=== PATIENT | female | born 1980 | race Caucasian/White ===

== ENCOUNTER → 2021-04-27 | Outpatient (CLI) | payer BC ==
[2021-04-27 12:34] LABS: BASO # 0.1 10^3/uL (0.0-0.2); EOS # 0.2 10^3/uL (0.0-0.5); HEMATOCRIT 43.6 % (36.0-47.0); HEMOGLOBIN 14.1 g/dl (12.0-15.5); LYMPH % 27.6 % (24.0-44.0); MEAN CORPUSCULAR HEMOGLOBIN 33.3 pg (27.0-33.0); MEAN CORPUSCULAR HGB CONC 32.3 g/dl (32.0-36.5); MEAN CORPUSCULAR VOLUME 102.8 fl (80.0-96.0); MONO % 9.5 % (2.0-8.0); NEUTROPHILS # 6.4 10^3/uL (1.5-8.5); NEUTROPHILS % 59.2 % (36.0-66.0); PLATELET COUNT, AUTOMATED 251 10^3/uL (150-450); RED BLOOD COUNT 4.24 10^6/uL (4.00-5.40); WHITE BLOOD COUNT 10.7 10^3/uL (4.0-10.0)
[2021-04-27 12:58] LABS: ALBUMIN 4.2 GM/DL (3.2-5.2); BILIRUBIN,DIRECT 0.2 MG/DL (0.0-0.2); BILIRUBIN,TOTAL 0.5 MG/DL (0.2-1.0); TOTAL PROTEIN 7.6 GM/DL (6.4-8.2)
== END ==
LOC: M LAB 10:59
PROVIDERS: ATTEND Internal Medicine Gastroenterology
DX: R19.7 Diarrhea, unspecified (principal)

== ENCOUNTER → 2021-05-03 | Outpatient (CLI) | payer BC ==
[2021-05-03 13:17] LABS: ALBUMIN 3.5 GM/DL (3.2-5.2); BILIRUBIN,DIRECT 0.2 MG/DL (0.0-0.2); BILIRUBIN,TOTAL 0.5 MG/DL (0.2-1.0); TOTAL PROTEIN 6.6 GM/DL (6.4-8.2)
== END ==
LOC: M LAB 07:06
PROVIDERS: ATTEND Internal Medicine Gastroenterology
DX: R19.7 Diarrhea, unspecified (principal)

== ENCOUNTER → 2021-07-02 | Outpatient (CLI) | payer BC ==
[~2021-07-02] MED LIST: LEVO150C PO; LISI20TA33 PO
== END ==
LOC: M LABSMTC 10:45
PROVIDERS: ATTEND Anesthesiology
DX: Z01.812 Encounter for preprocedural laboratory examination (principal); Z20.822 Contact with and (suspected) exposure to COVID-19

== ENCOUNTER 2021-07-06 11:22 | Day surgery (SDC) | payer BC ==
[~2021-07-06] VITALS: Ht 162.6 cm; Wt 68.0 kg
[~2021-07-06 11:22] MED LIST changes: +NS 1,000 ML IV ONE
[2021-07-06] MEDS ORDERED: propofoL 200 MG/20 ML VIAL As Ordered ONE ×2 (11:25→13:30)
[2021-07-06] MEDS ORDERED: LIDOCAINE 2% 100MG/5ML SDV (FOR ANES.) As Ordered ONE (11:25)
[2021-07-06] MEDS ORDERED: fentaNYL 100 MCG/2 ML INJECTION (J3010) As Ordered ONE (11:25)
--- OUTSIDE RECORDS SUMMARY | 2021-07-06 11:28 | CCD ---
Author Author [facility] Organization [facility] Address [address] [place] [address] Phone Care Team Providers Care Behavioral Modification Assistant Name Role Phone Laura PHIPPS, Vandana Davis Unavailable [phone] Reason for Referral No Reason for Referral Recorded Problems Includes: Active, inactive, and resolved Problems All Visits Onset Date - Time Resolved Date - Time Provider Co ndition Status Essential Hypertension Benign 11/21/2020 - 12:00AM Nikko Workman HALL MONITOR Active Note: Unchanged Substance Use Disorders 11/21/2020 - 12:00AM [facility] Workman HALL MONITOR Active Note: Unchanged Hypothyroidism Acquired 11/21/2020 - 12:00AM [facility] Workman HALL MONITOR Active Note: Unchanged Plan of Treatment Pending Tests Order Diagnosis Results Due Ordering Provi aryan *Labs (Manual) VIT D 25-OH Encounter for screening for nutr itional disorder 12/05/20 Cristiana Workman HALL MONITOR *Labs (Manual) TSH Hypothyroidism, unspecified 12/05/20 [facility] Workman HALL MONITOR *Labs (Manual) FREE T3 Hypothyroidism, unspecified 12/05/20 Cristiana Workman HALL MONITOR *Labs (Manual) FREE T4 Hypothyroidism, unspecified 12/05/20 Cristiana Workman HALL MONITOR *Labs (Manual) *FASTING Essential (primary) hypertension Cristiana Workman HALL MONITOR *Labs (Manual) LIPID Essential (primary) hypertension Cristiana Workman HALL MONITOR *Labs (Manual) URIC ACID Essential (primary) hypertension Cristiana Workman HALL MONITOR *Labs (Manual) CBC HCC-Alcohol use, unsp with unspe cified alcohol-induced disor 12/05/20 Cristiana Workman HALL MONITOR *Labs (Manual) CMP HCC-Alcohol use, unsp with unspe cified alcohol-induced disor 12/05/20 Cristiana Byrne Ji HALL MONITOR *Labs (Manual) FOLATE HCC-Alcohol use, uns p with unspecified alcohol-induced disor 12/05/20 Cristiana Byrne Ji HALL MONITOR *Labs (Manual) GGT HCC-Alcohol use, unsp with unspe cified alcohol-induced disor 12/05/20 Cristiana Byrne Ji HALL MONITOR *Labs (Manual) VIT B12 HCC-Alcohol use, uns p with unspecified alcohol-induced disor 12/05/20 Cristiana Byrne Ji HALL MONITOR *Labs (Manual) *RANDOM HCC-Alcohol use, uns p with unspecified alcohol-induced disor 12/05/20 Cristiana Byrne Ji HALL MONITOR *Labs (Manual) CBC Epigastric pain 02/26/21 [facility] poe Ji HALL MONITOR *Labs (Manual) CMP Epigastric pain 02/26/21 [facility] mckeonclementina Workman HALL MONITOR *Labs (Manual) AMYLASE Epigastric pain 02/26/21 [facility] poe Ji HALL MONITOR *Labs (Manual) LIPASE Epigastric pain 02/26/21 [facility] lindaclementina Ji HALL MONITOR Findings Encounter Date INCREASE LISINOPRIL TO 40MG PO QHS FFUP 4W BP CHK E XTENDED VISIT with Cristiana Workman NP 05/08/2021 DISCONTINUE LOSARTAN RESTART LISINOPR IL 20MG PO QHS CBC, CMP, AMYLASE, LIPASE REFERRAL TO DR. DOVER [facility] IN [place] FOR POSSIBLE EGD FOR POSSIBLE GASTRIC ULCERS. PT DRINKS 6PK 16oz BEERS/NIGHT, HAS CHRONIC STRESS FROM WORK FFUP 3M MED CHK STANDARD OV with Cristiana Chavez Workman NP 02/12/2021 DISCONTINUE LISINOPRIL START LOSARTAN 25MG PO QHS FFUP 2M MED CHK PE AND PAP with Cristiana Workman NP 12/19/2020 CBC, CMP, LIPID, VIT D, URIC ACID, GGT , FOLATE, B12, CDT (CARBOHYDRATE- DEFICIENT TRANSFERRIN), TSH, FREE T3 T4 FFUP 4W APE W PAP, LAB REVIEW NEW PATIENT EVALUATION with Cristiana Workman NP 11/21/2020 Assessments Includes: Assessments for all patient encounters Findings Encounter Date Benign essential hypertension EXTENDED VISIT with Cristiana Gutierrez lui Workman NP 05/08/2021 Hypothyroidism EXTENDED VISIT with Cristiana Cabaclementina parisi HALL MONITOR 05/08/2021 Abdominal pain--epigastric STANDARD OV with Cristiana Carrillo blanca HALL MONITOR 02/12/2021 Benign essential hypertension STANDARD OV with Cristiana mcrae Ji HALL MONITOR 02/12/2021 Alcohol use PE AND PAP with Cristiana Byrne [place] HALL MONITOR 12/19/2020 Benign essential hypertension PE AND PAP with Cristiana Workman HALL MONITOR 12/19/2020 Routine adult history and physical (18-64 yrs) without abnormal findings PE AND PAP with Cristiana Byrne Ji HALL MONITOR 12/19/2020 Routine history and physical PE AND PAP with Cristiana Byrne [place] HALL MONITOR 12/19/2020 Alcohol use NEW PATIENT EVALUATION with Cristiana Mccall nichole Workman HALL MONITOR 11/21/2020 Benign essential hypertension NEW PATIENT EVALUATION w ith Cristiana Byrne Ji HALL MONITOR 11/21/2020 Hypothyroidism NEW PATIENT EVALUATION with Cristiana Mccall ae Ji HALL MONITOR 11/21/2020 Instructions Instructions not supported for this document typeNo Instructions Recorded Medical Equipment - Implanted Devices Includes: Current and historical DevicesNo Medical Equipment Recorded Medications Includes: Current and historical Medications Current Medications (continue as prescribed) Levothyroxine Sodium 150 MCG Oral Capsule 05/08/2021 - 08/06 Provider: Cristiana Workman NP Diagnosis: Hypothyroidism, unsp ecified TAKE 1 TAB BY MOUTH ONCE DAILY Lisinopril 20 MG Oral Tablet 05/08/2021 - 08/06/2021 Provide r: Cristiana Workman NP Diagnosis: Essential (primary) hypertension TAKE 2 TABS (40MG) BY MOUTH AT BEDTIME Past Medications on file Levothyroxine Sodium 150 MCG Oral Capsule 02/12/2021 - 05/08 Provider: Cristiana Workman NP Diagnosis: Hypothyroidism, unsp ecified TAKE 1 TAB BY MOUTH ONCE DAILY Lisinopril 20 MG Oral Tablet 02/12/2021 - 05/08/2021 Provide r: Cristiana Workman NP Diagnosis: Essential (primary) hypertension TAKE 1 TAB BY MOUTH AT BEDTIME Losartan Potassium 50 MG Oral Tablet 01/30/2021 - 02/12/2021 Provider: Cristiana Workman NP Diagnosis: Essential (primary) hypertension 1 every day po Losartan Potassium 25 MG Oral Tablet 12/19/2020 - 01/30/2021 Provider: Cristiana Workman NP Diagnosis: Essential (primary) hypertension TAKE 1 TAB BY MOUTH AT BEDTIME Levothyroxine Sodium 150 MCG Oral Capsule 11/21/2020 - 11/21 Provider: Diagnosis: take one tab po qd Lisinopril 20 MG Oral Tablet 11/21/2020 - 11/21/2020 Provide r: Diagnosis: take one tab po qd Levothyroxine Sodium 150 MCG Oral Capsule 11/21/2020 - 02/12 Provider: Cristiana Workman NP Diagnosis: Hypothyroidism, unsp ecified TAKE 1 TAB BY MOUTH ONCE DAILY Lisinopril 20 MG Oral Tablet 11/21/2020 - 12/19/2020 Provide r: Cristiana Workman NP Diagnosis: Essential (primary) hypertension TAKE 1 TAB BY MOUTH ONCE DAILY Medications Administered Includes: Administered Medications in patient's chartNo Administered Medications Recorded Vital Signs Includes: Vital Signs from 05/08/2020 through 05/08/2021 Vital Name 05/08/2021 07:58A 02/12/2021 08:26A 12/19/2020 08:38A 11/21/2020 08:23A Blood Pressure Sitting R 114/86 BP Cuff Size Regular Regular Regular Regular Pulse Rate-Sitting (bpm) 78 64 68 72 Respiration Rate (breaths/min) 18 18 20 20 Temp-Tympanic (F) 95.6 96.8 98 97.8 Height (in) 63.25 63.25 63.25 63.25 Weight (lb) 153 156 154.5 160 Body Mass Index (kg/m2) 26.9 27.4 27.2 28.1 Body Surface Area (m2) 1.73 1.75 1.74 1.76 Oxygen Saturation (%) 98 97 98 97 Flow Rate (l/min) (None (Room Air)) FiO2 (%) 21 Blood Pressure Sitting L 158/96 132/80 126 /80 Results Includes: Results from 05/08/2020 through 05/08/2021 IGP,Aptima HPV,CtNg Age Gdln [facility] Ordered by Cristiana Workman NP on 12/19/2020 Collected: 12/19/2020 Reported: 12/22/2020 10:06 tel : Age Gdln ACOG Testing 30-65 None Reviewed by Cristiana Workman NP on 12/23/2020; All test results are final unless otherwise noted. IGP, Aptima HPV, rfx 16/18,45 [facility] Ordered by Cristiana Workman NP on 12/19/2020 Collected: 12/19/2020 Reported: 12/22/2020 10:06 tel : . . None Note: PAPSMR None Note: The Pap smear is a screening test designed to aid in the detection ofpremalignant and malignant conditions of the uterine cervix. It is not adiagnostic procedure and should not be used as the sole means of detectingcervical cancer. Both false-positive and false-negative reports do occur. DIAGNOSIS: See Note None Note: NEGATIVE FOR INTRAEPITHELIAL LESIO N OR MALIGNANCY.REACTIVE CELLULAR CHANGES AND/OR REPAIR ARE PRESENT.SHIFT IN LEONA SUGGESTIVE OF BACTERIAL VAGINOSIS.SPECIMEN REPROCESSED FOR INTERPRETATION USING GLACIAL ACETIC ACID(GAA). Specimen adequacy: See Note None Note: Satisfactory for evaluation. Endo cervical and/or squamous metaplasticcells (endocervical component) are present. Performed by: See Note None Note: Maite Severino, Cement Worker (A SCP) Electronically signed by: See Note None Note: Karthik Wolff MD, Patholog ist Clinician provided ICD10: See Note None Note: Z12.4 HPV Aptima Negative (Negative) None Note: This nucleic acid amplification te st detects fourteen high-riskHPV types (16,18,31,33,35,39,45,51,52,56,58,59,66,68) withoutdifferentiation. Test Methodology: TNP None Status: Cannot be done Note: The Thin Prep(R) Sales Record Clerk was unable to read this specimen. Thereforea manual review was performed. Reviewed by Cristiana Workman NP on 12/23/2020; All test results are final unless otherwise noted. History of Present Illness History of Present Illness not supported for this document typeNo History of Present Illness Recorded Social History Description Last Updated Social history unchanged 05/08/2021 Alcohol use 11/21/2020 Beer consumption 6PK/NIGHT 11/21/2020 Caffeine use 11/21/2020 Cigarette smoking 5CPD 11/21/2020 Current smoker 11/21/2020 Daily coffee consumption 18oz 11/21/2020 Daily tea consumption OCCA 11/21/2020 No chocolate consumption 11/21/2020 No cola consumption 11/21/2020 Not using drugs 11/21/2020 Poor exercise habits 11/21/2020 Smoking Status Unknown Procedures and Surgical History Includes: Procedures from 05/08/2020 through 05/08/2021 Procedures Code Diagnosis Performing Provider Service Location Service Date PAP SMEAR COLLECTION [id number] Encounter for [facility]ard hay for malignant neoplasm of cervix [facility] 11/22 Medical History Includes: Medical History in patient's chart Description Last Updated PMHx: ~HTN ~HYPOTHYROIDISM FROM THYROI DECTOMY ~HYPERTHYROIDISM ~ ~PSHx: ~RADICAL THYROIDECTOMY 2008 (PARATHYROIDS LEFT IN PLACE) ~WISDOM TOOTH EXTRACTION 2004 ~T&A 1990 ~GANGLION CYST REMOVAL LEFT WRIST 199411/21/2020 History of essential hypertension 11/21/2020 Family History Includes: Family History in patient's chart Description Last Updated Family in poor health MOM 64yo - KIDNEY TRANSPLANTS, 3 HIP REPLACEMENTS, PANCREATITIS, MAC DEGENERATION ~DAD 65yo - HYPERLIPIDEMIA, HTN ~BRO PALLAVI 44yo - HEALTHY ~BRO LILI 43yo - HEALTHY ~ JEFF 38yo - HTN, TACHYCARDIA ~DAUGHTER PATT 12yo - HEALTHY ~DAUGHTER DOREEN 9yo - HEALTHY 12/19/2020 Family history changed 11/21/2020 Family history of cancer PATERNAL GRAND MOTHER - COLON ~PATERNAL GRANDFATHER - PROSTATE ~MATERNAL GRANDMOTHER - BREAST 11/21/2020 Family history of heart disease FATHER - ANGINA 11/21 Family history of hypertension MOTHER ~FATHER 021 No diagnosis of family history of depression No family history of early deaths 11/21/2020 Review of Systems Review of Systems not supported for this document typeNo Review of Systems Recorded Mental Status Mental Status not supported for this document typeNo Mental Status Recorded Functional Status Functional Status not supported for this document typeNo Functional Status Recorded Physical Exam Physical Exam not supported for this document typeNo Physical Exam Recorded Immunizations Includes: Immunizations in patient's chart Vaccine Dose # Date Site Reaction(s) Status Source COVID-19 Moderna 1 09/25/2020 Complete (Reported) Patient COVID-19 Moderna 2 10/23/2020 Complete (Reported) Patient Allergies Includes: Active, inactive, and resolved AllergiesNo Known Allergies Encounters Includes: Encounters from 05/08/2020 through 05/08/2021 Encounter Provider Location Date Check-In Time Check-Out Time D iagnosis EXTENDED VISIT Cristiana Byrne Ji [facility]ICHARDO [facility], 05/08/2021 7:51AM 02/12/2021 11:59PM Hypothyroidism, Esse ntial Hypertension Benign STANDARD OV Cristiana Chavez Workman [facility] 02/12/2021 8:10AM 9:14AM Essential Hypertension Benig n, Abdominal Pain--epigastric [Patient Encounter] Cristiana Chavez Workman NP 01/30/2021 12:56PM 12/19/2020 11:59PM PE AND PAP [facility] Workman [facility], [facility] 12/19/2020 8:26AM 9:26AM Essential Hypertension Benig n, Routine History and Physical, Routine History & Physical Adult Without Abnormal Findings, Alcohol Use NEW PATIENT EVALUATION Cristiana Byrne Ji P[facility]ARDO [facility], 11/21/2020 8:21AM 9:19AM Essential Hypertensi on Benign, Hypothyroidism, Alcohol Use Insurance Includes: Active Insurance Policies Plan Name Member ID Group # Subscriber Relationship Effective Da nyla 1 - [facility] [id number] Pearl Obrien Self Advance Directives Includes: Current Advance DirectivesNo Advance Directives Recorded Health Concerns Includes: Active Health ConcernsNo Active Health Concerns Recorded Goals Includes: Active GoalsNo Active Goals Recorded Interventions Includes: Interventions for active GoalsNo Interventions Recorded Evaluations & Outcomes Includes: Evaluations & Outcomes for active GoalsNo Outcomes Recorded
--- OUTSIDE RECORDS SUMMARY | 2021-07-06 11:28 | CCD | Continuity of Care Document ---
Author Author Pearl BERGER M.D. Organization Unknown Address [address], [address] [place] [address] Phone [phone] Care Team Providers Care Catalyst Impregnator Name Role Phone Cristiana WorkmanZari AUTM [phone] Problems Active Problems Provider Date Essential hypertension Myles Berger M.D. Onset: 03/23 Social History Type Date Description Comments Sex Unknown ETOH Use 6/d Tobacco Use Start: Unknown Patient is a current smoker, smo kes every day Allergies, Adverse Reactions, Alerts Description No Known Drug Allergies Medications Active Medications SIG Qnty Indications Ordering Provide r Date Lisinopril 20mg Tablets 1tab qd Unknown Levothyroxine Sodium 150mcg Tablet s 1tab qd Unknown Immunizations Description No Information Available Vital Signs Date Vital Result Comment 04/26/2021 11:53am BP Systolic 128 mmHg BP Diastolic 74 mmHg Height 64.75 inches 5'4.75" Weight 150.00 lb BMI (Body Mass Index) 25.2 kg/m2 [place] Body Weight 120 lb Weight 68.040 kg BSA (Body Surface Area) 1.75 m2 Results Description No Information Available Procedures Description No Information Available Medical Devices Description No Information Available Encounters Description No Information Available Assessments Date Code Description Provider 04/26/2021 R19.7 Diarrhea, unspecified Myles Berger M.D. 04/26/2021 R10.13 Epigastric pain Myles Christianson ala, M.D. 04/26/2021 R11.0 Nausea Myles Christianson ala, M.D. 04/26/2021 R13.10 Dysphagia, unspecified Myles Berger M.D. Plan of Treatment 04/26/2021 - Myles Berger M.D.* R19.7 Diarrhea, unspecified * R10.13 Epigastric pain * R11.0 Nausea * R13.10 Dysphagia, unspecified * * New Labs:* CBC With Differential, Ordered: 04/26/21 * Liver Profile, Ordered: 04/26/21 * Tissue Transglutaminase Iga, Ordered: 04/26/21 * Iga Subclasses, Ordered: 04/26/21 * Calprotectin Stool Sendout, Ordered: 04/26/21 * Lactose Tolerance Test, Ordered: 04/26/21 * Clostridium Difficile PCR, Ordered: 04/26/21 * Pancreatic Elastase Stool Sendout, Ordered: 04/26/21 * Fat Fecal Qualitative, Ordered: 04/26/21 * Comments:* Possible differentials: Functional Status Description No Information Available Mental Status Description No Information Available Referrals Refer to Reason for Referral Status Appt Date Myles Berger M.D. EPIGASTRIC PAIN, NAUSEA, HX OF ET [place] ABUSE Scheduled 04/26/2021 [facility] [address], [address] [place] [address] [phone]
--- OUTSIDE RECORDS SUMMARY | 2021-07-06 11:28 | CCD ---
Author Author [facility] Organization [facility] Address [address] [place] [address] Phone Care Team Providers Care Director Diversity Name Role Phone Laura PHIPPS, Vandana Davis Unavailable [phone] Reason for Referral No Reason for Referral Recorded Problems Includes: Active, inactive, and resolved Problems All Visits Onset Date - Time Resolved Date - Time Provider Co ndition Status Essential Hypertension Benign 11/21/2020 - 12:00AM Nikko Workman SOFT TILE SETTER Active Note: Unchanged Substance Use Disorders 11/21/2020 - 12:00AM Zumbrota Abhishek Workman SOFT TILE SETTER Active Note: Unchanged Hypothyroidism Acquired 11/21/2020 - 12:00AM Zumbrota Abhishek Workman SOFT TILE SETTER Active Note: Unchanged Plan of Treatment Pending Tests Order Diagnosis Results Due Ordering Provi aryan *Labs (Manual) VIT D 25-OH Encounter for screening for nutr itional disorder 12/05/20 Cristiana Workman SOFT TILE SETTER *Labs (Manual) TSH Hypothyroidism, unspecified 12/05/20 Zumbrota Chavez Workman SOFT TILE SETTER *Labs (Manual) FREE T3 Hypothyroidism, unspecified 12/05/20 Cristiana Workman SOFT TILE SETTER *Labs (Manual) FREE T4 Hypothyroidism, unspecified 12/05/20 Cristiana Workman SOFT TILE SETTER *Labs (Manual) *FASTING Essential (primary) hypertension Cristiana Workman SOFT TILE SETTER *Labs (Manual) LIPID Essential (primary) hypertension Cristiana Workman SOFT TILE SETTER *Labs (Manual) URIC ACID Essential (primary) hypertension Cristiana Workman SOFT TILE SETTER *Labs (Manual) CBC HCC-Alcohol use, unsp with unspe cified alcohol-induced disor 12/05/20 Cristiana Workman SOFT TILE SETTER *Labs (Manual) CMP HCC-Alcohol use, unsp with unspe cified alcohol-induced disor 12/05/20 Cristiana Pikeias SOFT TILE SETTER *Labs (Manual) FOLATE HCC-Alcohol use, uns p with unspecified alcohol-induced disor 12/05/20 Cristiana Pikeias SOFT TILE SETTER *Labs (Manual) GGT HCC-Alcohol use, unsp with unspe cified alcohol-induced disor 12/05/20 Cristiana Byrne Ji SOFT TILE SETTER *Labs (Manual) VIT B12 HCC-Alcohol use, uns p with unspecified alcohol-induced disor 12/05/20 Cristiana Pikeias SOFT TILE SETTER *Labs (Manual) *RANDOM HCC-Alcohol use, uns p with unspecified alcohol-induced disor 12/05/20 Cristiana Pikeias SOFT TILE SETTER *Labs (Manual) CBC Epigastric pain 02/26/21 Zumbrota Brenda poe Ji SOFT TILE SETTER *Labs (Manual) CMP Epigastric pain 02/26/21 Zumbrota Brenda mckeonclementina Workman SOFT TILE SETTER *Labs (Manual) AMYLASE Epigastric pain 02/26/21 Zumbrota Brenda poe Ji SOFT TILE SETTER *Labs (Manual) LIPASE Epigastric pain 02/26/21 Zumbrota Brenda poe Ji SOFT TILE SETTER *Labs (Manual) CBC Palpitations 06/22/21 Zumbrota Gertrudis mcrae Ji SOFT TILE SETTER *Labs (Manual) CMP Palpitations 06/22/21 Zumbrota Gertrudis mcrae Ji SOFT TILE SETTER *Labs (Manual) MAGNESIUM LEVEL Palpitations 06/22/21 Zumbrota Brenda Pikeias SOFT TILE SETTER *Labs (Manual) TSH Palpitations 06/22/21 Zumbrota Gertrudis mcrae Ji SOFT TILE SETTER *Labs (Manual) FREE T3 Palpitations 06/22/21 Zumbrota Gertrudis mcrae Ji SOFT TILE SETTER *Labs (Manual) FREE T4 Palpitations 06/22/21 Zumbrota Gertrudis mcrae Ji SOFT TILE SETTER *Labs (Manual) D-dimer Palpitations 06/22/21 Zumbrota Gertrudis mcrae Ji SOFT TILE SETTER Findings Encounter Date REFERRAL TO DR. BARBER FOR SYMPTOMATIC PALPITATIONS, ?MURMUR IN OFFICE - NO KNOWN Hx OF CBC, CMP, MAG, TSH, FREE T3 T4, D-DIMER FFUP 2M MED CHK EXTENDED VISIT with Cristiana Chavez Workman NP 06/08/2021 INCREASE LISINOPRIL TO 40MG PO QHS FFUP 4W BP CHK E XTENDED VISIT with Zumbrota Chavez Workman NP 05/08/2021 DISCONTINUE LOSARTAN RESTART LISINOPR IL 20MG PO QHS CBC, CMP, AMYLASE, LIPASE REFERRAL TO DR. [facility] IN [place] FOR POSSIBLE EGD FOR POSSIBLE GASTRIC ULCERS. PT DRINKS 6PK 16oz BEERS/NIGHT, HAS CHRONIC STRESS FROM WORK FFUP 3M MED CHK STANDARD OV with Zumbrotabharti Cabaclementina Workman NP 02/12/2021 DISCONTINUE LISINOPRIL START LOSARTAN 25MG PO QHS FFUP 2M MED CHK PE AND PAP with Zumbrota Chavez Workman NP 12/19/2020 CBC, CMP, LIPID, VIT D, URIC ACID, GGT , FOLATE, B12, CDT (CARBOHYDRATE- DEFICIENT TRANSFERRIN), TSH, FREE T3 T4 FFUP 4W APE W PAP, LAB REVIEW NEW PATIENT EVALUATION with Cristiana Chavez Workman NP 11/21/2020 Assessments Includes: Assessments for all patient encounters Findings Encounter Date Benign essential hypertension EXTENDED VISIT with Zumbrota Brenda lui Workman NP 06/08/2021 Palpitations EXTENDED VISIT with Zumbrota Chavez parisi NP 06/08/2021 Benign essential hypertension EXTENDED VISIT with Zumbrota Brenda lui Workman NP 05/08/2021 Hypothyroidism EXTENDED VISIT with Cristiana Chavez parisi NP 05/08/2021 Abdominal pain--epigastric STANDARD OV with Zumbrota Gertrudisclementina rios NP 02/12/2021 Benign essential hypertension STANDARD OV with Zumbrota Wellingtonclementina Workman NP 02/12/2021 Alcohol use PE AND PAP with Zumbrota Chavez Workman NP 12/19/2020 Benign essential hypertension PE AND PAP with Zumbrota Chavez Workman NP 12/19/2020 Routine adult history and physical (18-64 yrs) without abnormal findings PE AND PAP with Zumbrota Chavez Workman NP 12/19/2020 Routine history and physical PE AND PAP with Zumbrota Chavez Workman NP 12/19/2020 Alcohol use NEW PATIENT EVALUATION with Cristiana Stefany nichole Workman NP 11/21/2020 Benign essential hypertension NEW PATIENT EVALUATION w ith Zumbrota Chavez Workman NP 11/21/2020 Hypothyroidism NEW PATIENT EVALUATION with Cristiana Stefany nichole Workman NP 11/21/2020 Instructions Instructions not supported for this [...] Recorded Vital Signs Includes: Vital Signs from 06/08/2020 through 06/08/2021 Vital Name 06/08/2021 08:01A 05/08/2021 07:58A 02/12/2021 08:26A 12/19/2020 08:38A 11/21/2020 08:23A Blood Pressure Sitting L 116/72 158/96 132/80 126/80 BP Cuff Size Regular Regular Regular Regular Regular Pulse Rate-Sitting (bpm) 76 78 64 68 72 Respiration Rate (breaths/min) 24 18 18 20 20 Temp-Tympanic (F) 97.8 95.6 96.8 98 97.8 Height (in) 63.25 63.25 63.25 63.25 63.25 Weight (lb) 153 153 156 154.5 160 Body Mass Index (kg/m2) 26.9 26.9 27.4 27.2 2 8.1 Body Surface Area (m2) 1.73 1.73 1.75 1.74 1. 76 Oxygen Saturation (%) 96 98 97 98 97 Flow Rate (l/min) (None (Room Air)) (None (Room Air)) FiO2 (%) 21 21 Blood Pressure Sitting R 114/86 Results Includes: Results from 06/08/2020 through 06/08/2021 IGP,Aptima HPV,CtNg Age Gdln [facility] [...] by: See Note None Note: Maite Severino, Therapeutic Strategy Lead (A SCP) Electronically signed by: See Note None Note: Karthik Wolff MD, Patholog ist Clinician provided ICD10: See Note None Note: Z12.4 HPV Aptima Negative (Negative) None Note: This nucleic acid amplification te st detects fourteen high-riskHPV types (16,18,31,33,35,39,45,51,52,56,58,59,66,68) withoutdifferentiation. Test Methodology: TNP None Status: Cannot be done Note: The Thin Prep(R) Profile Mill Operator Tape Control was unable to read this specimen. Thereforea manual review was performed. Reviewed by Cristiana Workman NP on 12/23/2020; All test results are final unless otherwise noted. History of Present Illness History of Present Illness not supported for this document typeNo History of Present Illness Recorded Social History Description Last Updated Social history unchanged 06/08/2021 Alcohol use 11/21/2020 Beer consumption 6PK/NIGHT 11/21/2020 Caffeine use 11/21/2020 Cigarette smoking 5CPD 11/21/2020 Current smoker 11/21/2020 Daily coffee consumption 18oz 11/21/2020 Daily tea consumption OCCA 11/21/2020 No chocolate consumption 11/21/2020 No cola consumption 11/21/2020 Not using drugs 11/21/2020 Poor exercise habits 11/21/2020 Smoking Status Unknown Procedures and Surgical History Includes: Procedures from 06/08/2020 through 06/08/2021 Procedures Code Diagnosis Performing Provider Service Location Service Date ELECTROCARDIOGRAM, COMPLETE (EKG) 71645 Palpitations Cristiana Workman NP 06/08/2021 PAP SMEAR COLLECTION Q0091 Encounter for richard hay for malignant neoplasm of cervix Cristiana Workman NP Family [facility] 11/22 Medical History Includes: Medical History [...] AllergiesNo Known Allergies Encounters Includes: Encounters from 06/08/2020 through 06/08/2021 Encounter Provider Location Date Check-In Time Check-Out Time D iagnosis EXTENDED VISIT Cristiana Workman NP [facility] 06/08/2021 8:00AM 05/08/2021 11:59PM Palpitations, Essent ial Hypertension Benign EXTENDED VISIT Cristiana Workman NP [facility] 05/08/2021 7:51AM 8:35AM Hypothyroidism, Esse ntial Hypertension Benign STANDARD OV Cristiana Workman NP [facility] Funez 02/12/2021 8:10AM 9:14AM Essential Hypertension Benig n, Abdominal Pain--epigastric [Patient Encounter] Cristiana Cabaclementina Workman SOFT TILE SETTER 01/30/2021 12:56PM 12/19/2020 11:59PM PE AND PAP Cristiana Gertrudisclementina Ji PICHARDO [facility] 12/19/2020 8:26AM 9:26AM Essential Hypertension Benig n, Routine History and Physical, Routine History & Physical Adult Without Abnormal Findings, Alcohol Use NEW PATIENT EVALUATION Cristiana Chavez Workman NP [facility], 11/21/2020 8:21AM 9:19AM Essential Hypertensi on Benign, Hypothyroidism, Alcohol Use Insurance Includes: Active Insurance Policies Plan Name Member ID Group # Subscriber Relationship Effective Da [address] [id number] Pearl Obrien Self Advance Directives Includes: Current Advance DirectivesNo Advance Directives Recorded Health Concerns Includes: Active Health ConcernsNo Active Health Concerns Recorded Goals Includes: Active GoalsNo Active Goals Recorded Interventions Includes: Interventions for active GoalsNo Interventions Recorded Evaluations & Outcomes Includes: Evaluations & Outcomes for active GoalsNo Outcomes Recorded
--- OUTSIDE RECORDS SUMMARY | 2021-07-06 11:28 | CCD ---
Author Author [facility] Organization [facility] Address [address] [place] [address] Phone Care Team Providers Care Pipe Foreman Name Role Phone Laura PHIPPS, Vandana Davis Unavailable [phone] Reason for Referral No Reason for Referral Recorded Problems Includes: Active, inactive, and resolved Problems All Visits Onset Date - Time Resolved Date - Time Provider Co ndition Status Essential Hypertension Benign 11/21/2020 - 12:00AM Nikko Workman RECYCLE WORKER Active Note: Unchanged Substance Use Disorders 11/21/2020 - 12:00AM Eustace Abhishek Workman RECYCLE WORKER Active Note: Unchanged Hypothyroidism Acquired 11/21/2020 - 12:00AM Eustace Abhishek Workman RECYCLE WORKER Active Note: Unchanged Plan of Treatment Pending Tests Order Diagnosis Results Due Ordering Provi aryan *Labs (Manual) VIT D 25-OH Encounter for screening for nutr itional disorder 12/05/20 Cristiana Workman RECYCLE WORKER *Labs (Manual) TSH Hypothyroidism, unspecified 12/05/20 Eustace Chavez Workman RECYCLE WORKER *Labs (Manual) FREE T3 Hypothyroidism, unspecified 12/05/20 Cristiana Workman RECYCLE WORKER *Labs (Manual) FREE T4 Hypothyroidism, unspecified 12/05/20 Cristiana Workman RECYCLE WORKER *Labs (Manual) *FASTING Essential (primary) hypertension Cristiana Workman RECYCLE WORKER *Labs (Manual) LIPID Essential (primary) hypertension Cristiana Workman RECYCLE WORKER *Labs (Manual) URIC ACID Essential (primary) hypertension Cristiana Workman RECYCLE WORKER *Labs (Manual) CBC HCC-Alcohol use, unsp with unspe cified alcohol-induced disor 12/05/20 Cristiana Workman RECYCLE WORKER *Labs (Manual) CMP HCC-Alcohol use, unsp with unspe cified alcohol-induced disor 12/05/20 Cristiana Pikeias RECYCLE WORKER *Labs (Manual) FOLATE HCC-Alcohol use, uns p with unspecified alcohol-induced disor 12/05/20 Cristiana Pikeias RECYCLE WORKER *Labs (Manual) GGT HCC-Alcohol use, unsp with unspe cified alcohol-induced disor 12/05/20 Cristiana Workman RECYCLE WORKER *Labs (Manual) VIT B12 HCC-Alcohol use, uns p with unspecified alcohol-induced disor 12/05/20 Cristiana Workman RECYCLE WORKER *Labs (Manual) *RANDOM HCC-Alcohol use, uns p with unspecified alcohol-induced disor 12/05/20 Cristiana Pikeias RECYCLE WORKER *Labs (Manual) CBC Epigastric pain 02/26/21 Eustace Brenda poe Ji RECYCLE WORKER *Labs (Manual) CMP Epigastric pain 02/26/21 Eustace Brenda poe Ji RECYCLE WORKER *Labs (Manual) AMYLASE Epigastric pain 02/26/21 Eustace Brenda poe Ji RECYCLE WORKER *Labs (Manual) LIPASE Epigastric pain 02/26/21 Eustace Brenda poe Ji RECYCLE WORKER *Labs (Manual) CBC Palpitations 06/22/21 Eustace Gertrudis mcrae Ji RECYCLE WORKER *Labs (Manual) CMP Palpitations 06/22/21 Eustace Gertrudis mcrae Ji RECYCLE WORKER *Labs (Manual) MAGNESIUM LEVEL Palpitations 06/22/21 Eustace Brenda Pikeias RECYCLE WORKER *Labs (Manual) TSH Palpitations 06/22/21 Eustace Gertrudis mcrae Ji RECYCLE WORKER *Labs (Manual) FREE T3 Palpitations 06/22/21 Eustace Gertrudis mcrae Ji RECYCLE WORKER *Labs (Manual) FREE T4 Palpitations 06/22/21 Eustace Gertrudis mcrae Ji RECYCLE WORKER *Labs (Manual) D-dimer Palpitations 06/22/21 Cristiana Gertrudis mcrae Ji RECYCLE WORKER Future Appointments Date Time Location Provider EXTENDED VISIT 08/08/2021 8:15AM [facility] Cristiana Caabclementina Workman NP Findings Encounter Date REFERRAL TO DR. BARBER FOR SYMPTOMATIC PALPITATIONS, ?MURMUR IN OFFICE - NO KNOWN Hx OF CBC, CMP, MAG, TSH, FREE T3 T4, D-DIMER EKG - NSR FFUP 2M MED CHK EXTENDED VISIT with Cristianabharti Workman NP INCREASE LISINOPRIL TO 40MG PO QHS FFUP 4W BP CHK E XTENDED VISIT with Cristiana Chavez Workman NP 05/08/2021 DISCONTINUE LOSARTAN RESTART LISINOPR IL 20MG PO QHS CBC, CMP, AMYLASE, LIPASE REFERRAL TO DR[facility] IN [place] FOR POSSIBLE EGD FOR POSSIBLE GASTRIC ULCERS. PT DRINKS 6PK 16oz BEERS/NIGHT, HAS CHRONIC STRESS FROM WORK FFUP 3M MED CHK STANDARD OV with Cristiana Chavez Workman NP 02/12/2021 DISCONTINUE LISINOPRIL START LOSARTAN 25MG PO QHS FFUP 2M MED CHK PE AND PAP with Cristiana Chavez Workman NP 12/19/2020 CBC, CMP, LIPID, VIT D, URIC ACID, GGT , FOLATE, B12, CDT (CARBOHYDRATE- DEFICIENT TRANSFERRIN), TSH, FREE T3 T4 FFUP 4W APE W PAP, LAB REVIEW NEW PATIENT EVALUATION with Cristiana Chavez Workman NP 11/21/2020 Assessments Includes: Assessments for all patient encounters Findings Encounter Date Benign essential hypertension EXTENDED VISIT with Cristiana Gutierrez lui Workman NP 06/08/2021 Palpitations EXTENDED VISIT with Eustace Chavez parisi NP 06/08/2021 Benign essential hypertension EXTENDED VISIT with Cristiana Gutierrez lui Workman NP 05/08/2021 Hypothyroidism EXTENDED VISIT with Eustace Chavez parisi NP 05/08/2021 Abdominal pain--epigastric STANDARD OV with Cristiana Chavez rios NP 02/12/2021 Benign essential hypertension STANDARD OV with Cristiana Gertrudis Workman NP 02/12/2021 Alcohol use PE AND PAP with Cristiana Chavez Workman NP 12/19/2020 Benign essential hypertension PE AND PAP with Eustace Chavez Workman NP 12/19/2020 Routine adult history and physical (18-64 yrs) without abnormal findings PE AND PAP with Eustace Chavez Workman NP 12/19/2020 Routine history and physical PE AND PAP with Eustace Chavez Workman NP 12/19/2020 Alcohol use NEW PATIENT EVALUATION with Cristiana Workman NP 11/21/2020 Benign essential hypertension NEW PATIENT EVALUATION w ith Cristiana Workman NP 11/21/2020 Hypothyroidism NEW PATIENT EVALUATION with Cristiana Workman NP 11/21/2020 Instructions Instructions not supported [...] 12/19/2020 Collected: 12/19/2020 Reported: 12/22/2020 10:06 tel :[phone] Age Gdln ACOG Testing 30-65 None Reviewed by Cristiana Workman NP on 12/23/2020; All test results are final unless otherwise noted. IGP, Aptima HPV, rfx 16/18,45 [facility] Ordered by Cristiana Workman NP on 12/19/2020 Collected: 12/19/2020 Reported: 12/22/2020 10:06 tel :[phone] . . None Note: PAPSMR None Note: [...] by: See Note None Note: Maite Severino, Navigating Officer (A SCP) Electronically signed by: See Note None Note: Karthik Wolff MD, Patholog ist Clinician provided ICD10: See Note None Note: Z12.4 HPV Aptima Negative (Negative) None Note: This nucleic acid amplification te st detects fourteen high-riskHPV types (16,18,31,33,35,39,45,51,52,56,58,59,66,68) withoutdifferentiation. Test Methodology: TNP None Status: Cannot be done Note: The Thin Prep(R) Pottery Kiln Builder was unable to read this specimen. Thereforea [...] Service Location Service Date ELECTROCARDIOGRAM, COMPLETE (EKG) 35945 Palpitations Cristiana Workman NP 06/08/2021 PAP SMEAR COLLECTION Q0091 Encounter for richard hay for malignant neoplasm of cervix Cristiana Workman NP [facility] 11/22 Medical History Includes: Medical History [...] EXTENDED VISIT Cristiana Workman NP [facility] 05/08/2021 7:51AM 8:35AM Hypothyroidism, Esse ntial Hypertension Benign STANDARD OV Cristiana Byrne iJ PICHARDO [facility] 02/12/2021 8:10AM 9:14AM Essential Hypertension Benig n, Abdominal Pain--epigastric [Patient Encounter] Cristiana Cabaclementina Workman RECYCLE WORKER 01/30/2021 12:56PM 12/19/2020 11:59PM PE AND PAP Cristiana Byrne Ji PICHARDO [facility] 12/19/2020 8:26AM 9:26AM Essential Hypertension Benig n, Routine History and Physical, Routine History & Physical Adult Without Abnormal Findings, Alcohol Use NEW PATIENT EVALUATION Cristiana Byrne Ji PICHARDO [facility], 11/21/2020 8:21AM 9:19AM Essential Hypertensi on Benign, Hypothyroidism, Alcohol Use Insurance Includes: Active Insurance Policies Plan Name Member ID Group # Subscriber Relationship Effective Da [address] [id number] Pearl Obrien Self Advance Directives Includes: Current Advance DirectivesNo Advance Directives Recorded Health Concerns Includes: Active Health ConcernsNo Active Health Concerns Recorded Goals Includes: Active GoalsNo Active Goals Recorded Interventions Includes: Interventions for active GoalsNo Interventions Recorded Evaluations & Outcomes Includes: Evaluations & Outcomes for active GoalsNo Outcomes Recorded
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
--- OUTSIDE RECORDS SUMMARY | 2021-07-06 11:28 | CCD | Continuity of Care Document ---
Author Author [facility] Organization Unknown Address [address] [place] [address] Phone [phone] Care Team Providers Care Construction Management Assistant Name Role Phone Cristiana Workman Unavailable Cristiana Workman Unavailable Social History Type Date Description Comments Sex Unknown Allergies and adverse reactions Description No Known Drug Allergies Medications Active Medications SIG Qnty Indications Ordering Provide r Date Levothyroxine Sodium 150mcg Capsul es Take One Capsule By Mouth Every Day Unknown 0 Lisinopril 20mg Tablets Take Two Tablets By Mouth AT Bedtime Unknown Vital Signs Date Vital Result Comment 06/27/2021 2:08pm Height 63.25 inches 5'3.25" Weight 150.12 lb BMI (Body Mass Index) 26.4 kg/m2 Body Temperature 97.9 F BP Systolic 124 mmHg BP Diastolic 86 mmHg Heart Rate 82 /min O2 % BldC Oximetry 98 % Respiratory Rate 18 /min Procedures Date Code Description Status 06/27/2021 71673 Office/Outpatient New Moderate M DM 45-59 Minutes Completed 06/27/2021 47071 Echocardiogram, Complete Complet ed 06/27/2021 58279 Multistage Exercise Stress Test Completed Encounters Type Date Location Provider Dx Diagnosis Office Visit 06/27/2021 2:15p [facility]ain [facility] R00.2 Palpitations I25.9 Chronic ischemic heart disea se, unspecified I34.0 Nonrheumatic mitral (valve) insufficiency Assessments Date Code Description Provider 06/27/2021 R00.2 Palpitations Mata Hays,[facility] 06/27/2021 I25.9 Chronic ischemic heart disease, unspecified Huss[facility] 06/27/2021 I34.0 Nonrheumatic mitral (valve) insu fficiency [facility] Plan of Treatment Future Appointment(s):* 07/30/2021 3:30 pm - Hussain Perasud [facility] at [facility]
--- OUTSIDE RECORDS SUMMARY | 2021-07-06 11:29 | CCD ---
Author Author [facility] Address Unknown Phone Unavailable Care Team Providers Care Food And Beverage Intern Name Role Phone SUSANNE PERSAUD MD Unavailable Unavailable SUSANNE PERSAUD MD Unavailable Unavailable SUSANNE PERSAUD MD Unavailable Unavailable SUSANNE PERSAUD MD Unavailable Unavailable SUSANNE PERSAUD MD Unavailable Unavailable SUSANNE PERSAUD MD Unavailable Unavailable SUSANNE PERSAUD MD Unavailable Unavailable SUSANNE PERSAUD MD Unavailable Unavailable SUSANNE PERSAUD MD Unavailable Unavailable SUSANNE PERSAUD MD Unavailable Unavailable SUSANNE PERSAUD MD Unavailable Unavailable SUSANNE PERSAUD MD Unavailable Unavailable SUSANNE PERSAUD MD Unavailable Unavailable SUSANNE PERSAUD MD Unavailable Unavailable SUSANNE PERSAUD MD Unavailable Unavailable SUSANNE PERSAUD MD Unavailable Unavailable SUNILSUSANNE WALL MD Unavailable Unavailable SUNIL, MAQBOOL BJ MD Unavailable Unavailable SUNIL, MAQBOOL BJ MD Unavailable Unavailable SUNIL, MAQBOOL BJ MD Unavailable Unavailable SUNIL, MAQBOOL BJ MD Unavailable Unavailable SUNIL, MAQBOOL BJ MD Unavailable Unavailable SUNIL, MAQBOOL BJ MD Unavailable Unavailable SUNIL, MAQBOOL BJ MD Unavailable Unavailable SUNIL, MAQBOOL BJ MD Unavailable Unavailable SUNIL, MAQBOOL BJ MD Unavailable Unavailable SUNIL, MAQBOOL BJ MD Unavailable Unavailable SUNIL, MAQBOOL BJ MD Unavailable Unavailable SUNIL, MAQBOOL BJ MD Unavailable Unavailable SUNIL, MAQBOOL BJ MD Unavailable Unavailable SUNIL, MAQBOOL BJ MD Unavailable Unavailable SUNIL, MAQBOOL BJ MD Unavailable Unavailable SUNIL, MAQBOOL BJ MD Unavailable Unavailable SUNIL, MAQBOOL BJ MD Unavailable Unavailable SUNIL, MAQBOOL BJ MD Unavailable Unavailable SUNIL, MAQBOOL JB MD Unavailable Unavailable SUNIL, MAQBOOL BJ MD Unavailable Unavailable SUNIL, MAQBOOL BJ MD Unavailable Unavailable SUNIL, MAQBOOL BJ MD Unavailable Unavailable SUNIL, MAQBOOL BJ MD Unavailable Unavailable SUNIL, MAQBOOL BJ MD Unavailable Unavailable SUNIL, MAQBOOL BJ MD Unavailable Unavailable SUNIL, MAQBOOL BJ MD Unavailable Unavailable SUNIL, MAQBOOL BJ MD Unavailable Unavailable SUNIL, MAQBOOL BJ MD Unavailable Unavailable SUNIL, MAQBOOL BJ MD Unavailable Unavailable SUNIL, MAQBOOL BJ MD Unavailable Unavailable SUNIL, MAQBOOL BJ MD Unavailable Unavailable SUNIL, MAQBOOL BJ MD Unavailable Unavailable SUNIL, MAQBOOL BJ MD Unavailable Unavailable SUNIL, MAQBOOL BJ MD Unavailable Unavailable SUNIL, MAQBOOL BJ MD Unavailable Unavailable SUNIL, MAQBOOL BJ MD Unavailable Unavailable SUNIL, MAQBOOL BJ MD Unavailable Unavailable SUNIL, MAQBOOL BJ MD Unavailable Unavailable SUNIL, MAQBOOL BJ MD Unavailable Unavailable SUNIL, MAQBOOL BJ MD Unavailable Unavailable SUNIL, MAQBOOL BJ MD Unavailable Unavailable SUNIL, MAQBOOL BJ MD Unavailable Unavailable SUNIL, MAQBOOL BJ MD Unavailable Unavailable SUNIL, MAQBOOL BJ MD Unavailable Unavailable SUNIL, MAQBOOL BJ MD Unavailable Unavailable SUNIL, MAQBOOL BJ MD Unavailable Unavailable SUNIL, MAQBOOL BJ MD Unavailable Unavailable SUNIL, MAQBOOL BJ MD Unavailable Unavailable SUNIL, MAQBOOL BJ MD Unavailable Unavailable SUNIL, MAQBOOL BJ MD Unavailable Unavailable SUNIL, MAQBOOL BJ MD Unavailable Unavailable SUNIL, MAQBOOL BJ MD Unavailable Unavailable SUNIL, MAQBOOL BJ MD Unavailable Unavailable SUNIL, MAQBOOL BJ MD Unavailable Unavailable SUNIL, MAQBOOL BJ MD Unavailable Unavailable SUNIL, MAQBOOL BJ MD Unavailable Unavailable SUNIL, MAQBOOL BJ MD Unavailable Unavailable SUNIL, MAQBOOL BJ MD Unavailable Unavailable SUNIL, MAQBOOL BJ MD Unavailable Unavailable SUNIL, MAQBOOL BJ MD Unavailable Unavailable SUNIL, MAQBOOL BJ MD Unavailable Unavailable [place], Mariae Cristiana COMPUTER HELP DESK SPECIALIST Unavailable Unavailable Ji, Mariae Cristiana COMPUTER HELP DESK SPECIALIST Unavailable Unavailable Ji, [facility] [place] COMPUTER HELP DESK SPECIALIST Unavailable Unavailable Ji, [facility] [place] COMPUTER HELP DESK SPECIALIST Unavailable Unavailable [place], [facility] [place] COMPUTER HELP DESK SPECIALIST Unavailable Unavailable [place], [facility] [place] COMPUTER HELP DESK SPECIALIST Unavailable Unavailable [place], Mariae [place] COMPUTER HELP DESK SPECIALIST Unavailable Unavailable Ji, Mariae Cristiana COMPUTER HELP DESK SPECIALIST Unavailable Unavailable [place], Mariae [place] COMPUTER HELP DESK SPECIALIST Unavailable Unavailable [place], Mariae Cristiana COMPUTER HELP DESK SPECIALIST Unavailable Unavailable [place], Maria[facility] [place] COMPUTER HELP DESK SPECIALIST Unavailable Unavailable [place], Mariae Cristiana COMPUTER HELP DESK SPECIALIST Unavailable Unavailable [place], [facility] [place] COMPUTER HELP DESK SPECIALIST Unavailable Unavailable Ji, [facility] [place] COMPUTER HELP DESK SPECIALIST Unavailable Unavailable Ji, [facility] [place] COMPUTER HELP DESK SPECIALIST Unavailable Unavailable [place], Mariae Cristiana COMPUTER HELP DESK SPECIALIST Unavailable Unavailable [place], [facility] [place] COMPUTER HELP DESK SPECIALIST Unavailable Unavailable [place], [facility] [place] COMPUTER HELP DESK SPECIALIST Unavailable Unavailable Ji, Mariae Cristiana COMPUTER HELP DESK SPECIALIST Unavailable Unavailable Ji, Mariae Cristiana COMPUTER HELP DESK SPECIALIST Unavailable Unavailable Ji, Mariae Cristiana COMPUTER HELP DESK SPECIALIST Unavailable Unavailable [place], Maria[facility] [place] COMPUTER HELP DESK SPECIALIST Unavailable Unavailable [place], [facility] [place] COMPUTER HELP DESK SPECIALIST Unavailable Unavailable [place], [facility] [place] COMPUTER HELP DESK SPECIALIST Unavailable Unavailable [place], [facility] [place] COMPUTER HELP DESK SPECIALIST Unavailable Unavailable [place], [facility] [place] COMPUTER HELP DESK SPECIALIST Unavailable Unavailable Ji, Mariae Cristiana COMPUTER HELP DESK SPECIALIST Unavailable Unavailable [place], Maria[facility] [place] COMPUTER HELP DESK SPECIALIST Unavailable Unavailable Ji, [facility] [place] COMPUTER HELP DESK SPECIALIST Unavailable Unavailable Ji, [facility] [place] COMPUTER HELP DESK SPECIALIST Unavailable Unavailable Ji, [facility] [place] COMPUTER HELP DESK SPECIALIST Unavailable Unavailable [place], [facility] [place] COMPUTER HELP DESK SPECIALIST Unavailable Unavailable [place], Maria[facility] [place] COMPUTER HELP DESK SPECIALIST Unavailable Unavailable Ji, [facility] [place] COMPUTER HELP DESK SPECIALIST Unavailable Unavailable Rober BERGER MD Unavailable Unavailable Rober BERGER MD Unavailable Unavailable Rober BERGER MD Unavailable Unavailable Rober BERGER MD Unavailable Unavailable Rober BERGER MD Unavailable Unavailable Rober BERGER MD Unavailable Unavailable Rober BERGER MD Unavailable Unavailable Rober BERGER MD Unavailable Unavailable Rober BERGER MD Unavailable Unavailable Rober BERGER MD Unavailable Unavailable Rober BERGER MD Unavailable Unavailable Rober BERGER MD Unavailable Unavailable Rober BERGER MD Unavailable Unavailable Rober BERGER MD Unavailable Unavailable Rober BERGER MD Unavailable Unavailable Rober BERGER MD Unavailable Unavailable Rober BERGER MD Unavailable Unavailable Rober BERGER MD Unavailable Unavailable Rober BERGER MD Unavailable Unavailable Rober BERGER MD Unavailable Unavailable Rober BERGER MD Unavailable Unavailable Rober BERGER MD Unavailable Unavailable Rober BERGER MD Unavailable Unavailable Rober BERGER MD Unavailable Unavailable Rober BERGER MD Unavailable Unavailable Rober BERGER MD Unavailable Unavailable Rober BERGER MD Unavailable Unavailable oRber BERGER MD Unavailable Unavailable Rober BERGER MD Unavailable Unavailable Rober BERGER MD Unavailable Unavailable Rober BERGER MD Unavailable Unavailable Rober BERGER MD Unavailable Unavailable Rober BERGER MD Unavailable Unavailable Re-disclosure Warning The records that you are about to access may contain information from federally-assisted alcohol or drug abuse programs. If such information is present, then the following federally mandated warning applies: This information has been disclosed to you from records protected by federal confidentiality rules (42 CFR part 2). The federal rules prohibit you from making any further disclosure of this information unless further disclosure is expressly permitted by the written consent of the person to whom it pertains or as otherwise permitted by 42 CFR part 2. A general authorization for the release of medical or other information is NOT sufficient for this purpose. The Federal rules restrict any use of the information to criminally investigate or prosecute any alcohol or drug abuse patient.The records that you are about to access may contain highly sensitive health information, the redisclosure of which is protected by Article 27-F of the [facility] Public Health law. If you continue you may have access to information: Regarding HIV / AIDS; Provided by facilities licensed or operated by the [facility] Office of Mental Health; or Provided by the [facility] Office for People With Developmental Disabilities. If such information is present, then the following [facility] mandated warning applies: This information has been disclosed to you from confidential records which are protected by state law. State law prohibits you from making any further disclosure of this information without the specific written consent of the person to whom it pertains, or as otherwise permitted by law. Any unauthorized further disclosure in violation of state law may result in a fine or fpc sentence or both. A general authorization for the release of medical or other information is NOT sufficient authorization for further disc losure. Allergies and Adverse Reactions Type Description Substance Reaction Status Data Source(s ) No Known Drug Allergies No Known Drug Allergies [facility] Allergy to substance No Known Allergies No known allergies (situation ) [facility]) Allergy to substance No Known Allergies No known allergies (situation ) [facility]) Allergy to substance No Known Allergies No known allergies (situation ) [facility]) Allergy to substance No Known Allergies No known allergies (situation ) [facility]) Allergy to substance No Known Allergies No known allergies (situation ) [facility]) Allergy to substance No Known Allergies No known allergies (situation ) [facility]) Allergy to substance No Known Allergies No known allergies (situation ) [facility] ([facility]) Allergy to substance No Known Allergies No known allergies (situation ) [facility] ([facility]) Allergy to substance No Known Allergies No known allergies (situation ) [facility] ([facility]) Encounters Encounter Providers Location Date Indications Data Source(s ) Outpatient Attender: BJ PERSAUD MD [facility] 06/27 02:15:00 PM EDT [facility] (Bj Persaud MD) Outpatient Attender: Cristiana Workman NPConsultant: Cristiana Carrillo blanca PICHARDO 06/08/2021 08:59:00 AM EDT - 06/08/2021 09:59:00 AM EDT [facility] Outpatient<td ID="encounterTypeDescripti onID0">EXTENDED VISIT</td><td>Cristiana Byrne Ji PICHARDO</td><td>[facility]</td><td>06/08/2021</td><td>8:00AM</td><td>05/08/2021 11:59PM</td> <td><content ID="encounterDiagnosisID0-0">Palpitations</content>, <content ID="encounterDiagnosisID0-1">Essential Hypertension Benign</content></td> Attender: Cristiana Ji PICHADRO [facility], 06/08/2021 08:00:00 AM EDT - 05/08/2021 11:59:00 PM EDT PalpitationsPalpitationsEssential Hypertension BenignEssential Hypertension Benign [facility] ([facility]) Palpitations Palpitations Essential Hypertension Benign Essential Hypertension Benign Outpatient<td ID="encounterTypeDescripti onID1">EXTENDED VISIT</td><td>Cristiana Byrne Ji PICHARDO</td><td>[facility],</td><td>05/08/2021</td><td>7:51AM</td><td>8:35AM</td><td><content ID="encounterDiagnosisID1-0">Hypothyroidism</content>, <content ID="encounterDiagnosisID1-1">Essential Hypertension Benign</content></td> Attender: Cristiana Workman NP [facility] 05/08/2021 07:51:00 AM EDT - 05/08/2021 08:35:00 AM EDT Essential Hypertension BenignHypothyroidismEssential Hypertension BenignHypothyroidismEssential Hypertension BenignHypothyroidism [facility] ([facility]) Essential Hypertension Benign Hypothyroidism Essential Hypertension Benign Hypothyroidism Essential Hypertension Benign Hypothyroidism Outpatient Attender: YANNA Kumar/Oneil/Choco oliva/Reindl 04/26/2021 11:20:00 AM EDT [facility] Out[facility]<td ID="encounterTypeDescripti onID2">STANDARD OV</td><td>Cristiana Workman NP</td><td>[facility]</td><td>02/12/2021</td><td>8:10AM</td><td>9:14AM</td><td><content ID="encounterDiagnosisID2-0">Essential Hypertension Benign</content>, <content ID="encounterDiagnosisID2-1">Abdominal Pain--epigastric</content></td> Attender: Cristiana Workman NP [facility] 02/12/2021 08:10:00 AM EDT - 02/12/2021 09:14:00 AM EDT Abdominal Pain--epigastricAbdominal Pain--epigastricAbdominal Pain--epigastricAbdominal Pain--epigastricAbdominal Pain--epigastricEssential Hypertension BenignEssential Hypertension BenignEssential Hypertension BenignEssential Hypertension BenignEssential Hypertension Benign [facility] ([facility]) Abdominal Pain--epigastric Abdominal Pain--epigastric Abdominal Pain--epigastric Abdominal Pain--epigastric Abdominal Pain--epigastric Essential Hypertension Benign Essential Hypertension Benign Essential Hypertension Benign Essential Hypertension Benign Essential Hypertension Benign Outpatient<td ID="encounterTypeDescripti onID3">[Patient Encounter]</td><td>Cristiana Workman NP</td><td></td><td>01/30/2021</td><td>12/19/2020 12:56PM</td><td>12/19/2020 11:59PM</td><td></td> Attender: Cristiana Workman NP 12/19/2020 12:56:00 PM EDT - 12/19/2020 11:59:00 PM EDT [facility] ([facility]) <td ID="encounterTypeDescriptionID4">PE AND PAP</td><td>Cristiana Gertrudisclementina Ji PICHARDO</td><td>[facility],</td><td>12/19/2020</td><td>8:26AM</td><td>9:26AM</td><td><content ID="encounterDiagnosisID4-0">Essential Hypertension Benign</content>, <content ID="encounterDiagnosisID4-1">Routine History and Physical</content>, <content ID="encounterDiagnosisID4-2">Routine History & Physical Adult Without Abnormal Findings</content>, <content ID="encounterDiagnosisID4-3">Alcohol Use</content></td>Outpatient Attender: Cristiana Workman NP [facility], 12/19/2020 08:26:00 AM EDT - 12/19/2020 09:26:00 AM ED T Routine History & Physical Adult Without Abnormal FindingsRoutine History and PhysicalRoutine History & Physical Adult Without Abnormal FindingsRoutine History and PhysicalRoutine History & Physical Adult Without Abnormal Findings Routine History and PhysicalRoutine History & Physical Adult Without Abnormal FindingsRoutine History and PhysicalRoutine History & Physical Adult Without Abnormal FindingsRoutine History and PhysicalRoutine History & Physical Adult Without Abnormal FindingsRoutine History and PhysicalRoutine History & Physical Adult Without Abnormal FindingsRoutine History and PhysicalRoutine History & Physical Adult Without Abnormal FindingsRoutine History and PhysicalAlcohol UseEssential Hypertension BenignAlcohol UseEssential Hypertension BenignAlcohol UseEssential Hypertension BenignAlcohol UseEssential Hypertension BenignAlcohol UseEssential Hypertension BenignAlcohol UseEssential Hypertension BenignAlcohol UseEssential Hypertension BenignAlcohol UseEssential Hypertension Benign [facility] ([facility]) Routine History & Physical Adult Without Abnormal Findings Routine History and Physical Routine History & Physical Adult Without Abnormal Findings Routine History and Physical Routine History & Physical Adult Without Abnormal Findings Routine History and Physical Routine History & Physical Adult Without Abnormal Findings Routine History and Physical Routine History & Physical Adult Without Abnormal Findings Routine History and Physical Routine History & Physical Adult Without Abnormal Findings Routine History and Physical Routine History & Physical Adult Without Abnormal Findings Routine History and Physical Routine History & Physical Adult Without Abnormal Findings Routine History and Physical Alcohol Use Essential Hypertension Benign Alcohol Use Essential Hypertension Benign Alcohol Use Essential Hypertension Benign Alcohol Use Essential Hypertension Benign Alcohol Use Essential Hypertension Benign Alcohol Use Essential Hypertension Benign Alcohol Use Essential Hypertension Benign Alcohol Use Essential Hypertension Benign Outpatient Attender: Cristiana Workman NPConsultant: Cristiana rios NP 12/19/2020 07:07:00 AM EDT - 12/19/2020 08:07:00 AM EDT [facility] <td ID="encounterTypeDescriptionID5">NEW PATIENT EVALUATION</td><td>Cristiana Workman NP</td><td>[facility],</td><td>11/21/2020</td><td>8:21AM</td><td>9:19AM</td><td><content ID="encounterDiagnosisID5-0">Essential Hypertension Benign</content>, <content ID="encounterDiagnosisID5-1">Hypothyroidism</content>, <content ID="encounterDiagnosisID5-2">Alcohol Use</content></td>Outpatient Attender: Cristiana Workman NP [facility], 11/21/2020 08:21:00 AM EST - 11/21/2020 09:19:00 AM EST Alcohol UseHypothyroidismEssential Hyper tension BenignAlcohol UseHypothyroidismEssential Hypertension BenignAlcohol UseHypothyroidismEssential Hypertension BenignAlcohol UseHypothyroidismEssential Hypertension BenignAlcohol UseHypothyroidismEssential Hypertension BenignAlcohol UseHypothyroidismEssential Hypertension BenignAlcohol UseHypothyroidismEssential Hypertension BenignAlcohol UseHypothyroidismEssential Hypertension BenignAlcohol UseHypothyroidismEssential Hypertension Benign [facility] ([facility]) Alcohol Use Hypothyroidism Essential Hypertension Benign Alcohol Use Hypothyroidism Essential Hypertension Benign Alcohol Use Hypothyroidism Essential Hypertension Benign Alcohol Use Hypothyroidism Essential Hypertension Benign Alcohol Use Hypothyroidism Essential Hypertension Benign Alcohol Use Hypothyroidism Essential Hypertension Benign Alcohol Use Hypothyroidism Essential Hypertension Benign Alcohol Use Hypothyroidism Essential Hypertension Benign Alcohol Use Hypothyroidism Essential Hypertension Benign Immunizations Vaccine Date Status Description Data Source(s) COVID-19 a 10/23/2020 08:56:00 AM EST completed <td ID="Cwxilluhfyawd-Pbeitqbruge-FR6">COVID-19 Moderna</td><td ID="ImmunizationDose-1">2</td><td>10/23/2020</td><td ID="Mvwwvlvhhczkw-XqytsFour-IN5"></td><td></td><td ID="Sgarxhpexlvrp-Boshyj-HR1">Complete (Reported)</td><td>Patient</td><td ID="Zzlwrlkzbteuw-Gtlvm-Rqyi-Comment-ID1"></td> [facility]) COVID-19 VACCINE a 10/23/2020 12:00:00 AM EST completed NYSIIS Vaccine Series Complete: YESThis Data wa s Submitted to [facility] Via [employer]. COVID-19 a 09/25/2020 08:56:00 AM EST completed <td ID="Ewmkbtzslnwuh-Clbawhqrydd-LR2">COVID-19 Moderna</td><td ID="ImmunizationDose-0">1</td><td>09/25/2020</td><td ID="Xwukybmizhedv-XpueaPkrd-PP7"></td><td></td><td ID="Tlrvsuwjyimox-Cnyiyt-XI9">Complete (Reported)</td><td>Patient</td><td ID="Oahvjubeeidxj-Zfpna-Qrie-Comment-ID0"></td> [facility]) COVID-19 VACCINE Moderna 09/25/2020 12:00:00 AM EST completed NYSIIS Vaccine Series Complete: NOThis Data was Submitted to [facility] Via [employer]. Medications Medication Brand Name Start Date Product Form Dose Route Admi nistrative Instructions Pharmacy Instructions Status Indications Reaction Description Data Source(s) Citric Acid 75 MG/ML / Magnesium Oxide 2 1.9 MG/ML / picosulfate sodium 0.0625 MG/ML Oral Solution [Clenpiq] 10 mg-3.5 gram -12 gram/160 mL SOD PICOSULF/MAG OX/CITRIC AC 07/03/2021 12:00:00 AM EDT solution 320 F OLLOW PRE-PROCEDURE INSTRUCTIONS, START DAY BEFORE PROCEDURE FOLLOW PRE-PROCEDURE INSTRUCTIONS, START DAY BEFORE PROCEDURE SOLD: 07/04/2021 [facility] 150 mg 05/18/2021 12:00:00 AM EDT tablet 1 TAKE ONE TABLET BY MOUTH ONCE TAKE ONE TABLET BY MOUTH ONCE SOLD: 05/19/2021 [facility] 0.75 % 05/15/2021 12:00:00 AM EDT gel 70 USE 1 APPLICATOR INTRVAGINALLY AT BEDTIME FOR 5 NIGHTS USE 1 APPLICATOR INTRVAGINALLY AT BEDTIME FOR 5 NIGHTS SOLD: 05/16/2021 [facility] 150 mg 05/15/2021 12:00:00 AM EDT tablet 1 TAKE 1 TABLET BY MOUTH FOR 1 DOSE TAKE 1 TABLET BY MOUTH FOR 1 DOSE SOLD: 05/16/2021 [facility] 150 mcg 05/09/2021 12:00:00 AM EDT capsule 90 TAKE ONE CAPSULE BY MOUTH EVERY DAY TAKE ONE CAPSULE BY MOUTH EVERY DAY SOLD: 05/13/2021 [facility] Lisinopril 20 MG Oral Tablet Lisinopril 20 MG Oral Tablet 12:00:00 AM EDT active lisinopril 20 MG Oral Tablet [facility] ([facility]) 20 mg 05/08/2021 12:00:00 AM EDT tablet 180 TAKE TWO TABLETS BY MOUTH AT BEDTIME TAKE TWO TABLETS BY MOUTH AT BEDTIME SOLD: 05/13/2021 [facility] Levothyroxine Sodium 0.15 MG Oral Capsul e Levothyroxine Sodium 150 MCG Oral Capsule Levothyroxine Sodium 150 MCG Oral Capsule 05/08/2021 12:00:00 AM EDT active levothyroxine sodium 0.1 5 MG Oral Capsule [facility] ([facility]) 150 mg 04/25/2021 12:00:00 AM EDT tablet 1 TAKE ONE TABLET BY MOUTH ONCE TAKE ONE TABLET BY MOUTH ONCE SOLD: 04/25/2021 [facility] 0.75 % 04/18/2021 12:00:00 AM EDT gel 70 INSERT ONE APPLICATORFUL VAGINALLY AT BEDTIME FOR 5 DAYS INSERT ONE APPLICATORFUL VAGINALLY AT BEDTIME FOR 5 DA YS SOLD: 04/18/2021 [facility] Levothyroxine Sodium 0.15 MG Oral Capsul e Levothyroxine Sodium 150 MCG Oral Capsule Levothyroxine Sodium 150 MCG Oral Capsule 02/12/2021 12:00:00 AM EDT aborted levothyroxine sodium 0.1 5 MG Oral Capsule [facility] ([facility]) 150 mcg 02/12/2021 12:00:00 AM EDT capsule 90 TAKE ONE TABLET BY MOUTH ONCE DAILY TAKE ONE TABLET BY MOUTH ONCE DAILY SOLD: 02/13/2021 [facility] Lisinopril 20 MG Oral Tablet LISINOPRIL 02/12/2021 12:00:00 AM EDT tab let 90 TAKE ONE TABLET BY MOUTH AT BEDTIME TAKE ONE TABLET BY MOUTH AT BEDTIME SOLD: 02/13/2021 [facility] Lisinopril 20 MG Oral Tablet Lisinopril 20 MG Oral Tablet 12:00:00 AM EDT aborted lisinopril 20 MG Oral Tablet [facility] ([facility]) 50 mg 01/30/2021 12:00:00 AM EDT tablet 30 TAKE ONE TABLET BY MOUTH EVERY DAY TAKE ONE TABLET BY MOUTH EVERY DAY SOLD: 01/30/2021 [facility] Losartan Potassium 50 MG Oral Tablet Losartan Potassium 50 M G Oral Tablet 01/30/2021 12:00:00 AM EDT 1 aborted losartan potassium 50 MG Oral Tablet [facility] ([facility]) 25 mg 12/20/2020 12:00:00 AM EDT tablet 30 TAKE ONE TABLET BY MOUTH AT BEDTIME TAKE ONE TABLET BY MOUTH AT BEDTIME SOLD: 12/21/2020 [facility] Losartan Potassium 25 MG Oral Tablet Losartan Potassium 25 M G Oral Tablet 12/19/2020 12:00:00 AM EDT aborted losartan potassium 25 MG Oral Tablet [facility] ([facility]) 20 mg 11/21/2020 12:00:00 AM EST tablet 90 TAKE ONE TABLET BY MOUTH EVERY DAY TAKE ONE TABLET BY MOUTH EVERY DAY SOLD: 11/23/2020 [facility] Levothyroxine Sodium 0.15 MG Oral Capsul e Levothyroxine Sodium 150 MCG Oral Capsule Levothyroxine Sodium 150 MCG Oral Capsule 11/21/2020 12:00:00 AM EST aborted levothyroxine sodium 0.1 5 MG Oral Capsule [facility] ([facility]) Lisinopril 20 MG Oral Tablet Lisinopril 20 MG Oral Tablet 12:00:00 AM EST aborted lisinopril 20 MG Oral Tablet [facility] ([facility]) Levothyroxine Sodium 0.15 MG Oral Capsul e Levothyroxine Sodium 150 MCG Oral Capsule Levothyroxine Sodium 150 MCG Oral Capsule 11/21/2020 12:00:00 AM EST aborted levothyroxine sodium 0.1 5 MG Oral Capsule [facility] ([facility]) Lisinopril 20 MG Oral Tablet Lisinopril 20 MG Oral Tablet 12:00:00 AM EST aborted lisinopril 20 MG Oral Tablet [facility] ([facility]) 150 mcg 11/21/2020 12:00:00 AM EST capsule 90 TAKE ONE CAPSULE BY MOUTH EVERY DAY TAKE ONE CAPSULE BY MOUTH EVERY DAY SOLD: 11/23/2020 [facility] 150 mcg 10/05/2020 12:00:00 AM EST tablet 30 TAKE ONE TABLET BY MOUTH EVERY DAY TAKE ONE TABLET BY MOUTH EVERY DAY SOLD: 11/04/2020 [facility] 150 mcg 10/05/2020 12:00:00 AM EST tablet 30 TAKE ONE TABLET BY MOUTH EVERY DAY TAKE ONE TABLET BY MOUTH EVERY DAY SOLD: 10/06/2020 [facility] Insurance Providers Payer name Policy type / Coverage type Policy ID Covered libertarian ID Covered libertarian's relationship to ashby Policy Ashby Plan Information [employer] PROGRAM [id number] SP [id number] [facility] FEDERAL O/P [id number] 18 [id number] [facility] Other 0 [id number] Self 0 [facility] [facility] Other 0 [id number] Self 0 [employer] [facility] Other 0 [id number] Self 0 [employer] [id number] SP [id number] [employer] [facility] Other 0 [id number] Self 0 [employer] [facility] Other 0 [id number] Self 0 [employer] [facility] Other 0 [id number] Self 0 [employer] [facility] Other 0 [id number] Self 0 [employer] [facility] Other 0 [id number] Self 0 [employer] [facility] Other 0 [id number] Self 0 BC BS [place] FEDERAL [id number] SP [id number] [facility] FEDERAL O/P [id number] 18 [id number] Problems, Conditions, and Diagnoses Code Display Name Description Problem Type Effective Dates Data Source(s) R002 Palpitations Palpitations Diagnosis 06/08/2021 08:59:00 A M [facility] 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, unspecified with unspecifie d alcohol-induced disorder Alcohol use, unspecified with unspecified alcohol-induced disorder Diagnosis 12/19/2020 07:07:00 AM [facility] I10 Essential (primary) hypertension Essential (primary) h ypertension Diagnosis 12/19/2020 07:07:00 AM [facility] Z1321 Encounter for screening for nutritional disorder Encounter for screening for nutritional disorder Diagnosis 12/19/2020 07:07:00 AM [facility] E039 Hypothyroidism, unspecified Hypothyroidism, unspecifie d Diagnosis 12/19/2020 07:07:00 AM [facility] [id number] Essential hypertension Essential hypertension Problem 04/19/2021 12:00:00 AM EDT [facility] ([facility], ) [id number] Acquired hypothyroidism (disorder) Hypothyroidism Acqu ired Problem 11/21/2020 12:00:00 AM EST MIC[facility] ([facility]) 291.9 Substance Use Disorders Substance Use Disorders Proble 11/21/2020 12:00:00 AM EST [facility] ([facility]) I10 Essential Hypertension Benign Essential Hypertension B enign Problem 11/21/2020 12:00:00 AM EST [facility] ([facility]) [id number] Acquired hypothyroidism (disorder) Hypothyroidism Acqu ired Problem 11/21/2020 12:00:00 AM EST [facility] ([facility]) 291.9 Substance Use Disorders Substance Use Disorders Proble 11/21/2020 12:00:00 AM EST [facility] ([facility]) I10 Essential Hypertension Benign Essential Hypertension B enign Problem 11/21/2020 12:00:00 AM EST [facility] ([facility]) [id number] Acquired hypothyroidism (disorder) Hypothyroidism Acqu ired Problem 11/21/2020 12:00:00 AM EST [facility] ([facility]) 291.9 Substance Use Disorders Substance Use Disorders Proble m 11/21/2020 12:00:00 AM EST [facility] ([facility]) I10 Essential Hypertension Benign Essential Hypertension B enign Problem 11/21/2020 12:00:00 AM EST [facility] ([facility]) [id number] Acquired hypothyroidism (disorder) Hypothyroidism Acqu ired Problem 11/21/2020 12:00:00 AM EST [facility] ([facility]) 291.9 Substance Use Disorders Substance Use Disorders Proble m 11/21/2020 12:00:00 AM EST [facility] ([facility]) I10 Essential Hypertension Benign Essential Hypertension B enign Problem 11/21/2020 12:00:00 AM EST [facility] ([facility]) [id number] Acquired hypothyroidism (disorder) Hypothyroidism Acqu ired Problem 11/21/2020 12:00:00 AM EST [facility] ([facility]) 291.9 Substance Use Disorders Substance Use Disorders Proble m 11/21/2020 12:00:00 AM EST [facility] ([facility]) I10 Essential Hypertension Benign Essential Hypertension B enign Problem 11/21/2020 12:00:00 AM EST [facility] ([facility]) [id number] Acquired hypothyroidism (disorder) Hypothyroidism Acqu ired Problem 11/21/2020 12:00:00 AM EST [facility] ([facility]) 291.9 Substance Use Disorders Substance Use Disorders Proble m 11/21/2020 12:00:00 AM EST [facility] ([facility]) I10 Essential Hypertension Benign Essential Hypertension B enign Problem 11/21/2020 12:00:00 AM EST [facility] ([facility]) [id number] Acquired hypothyroidism (disorder) Hypothyroidism Acqu ired Problem 11/21/2020 12:00:00 AM EST [facility] ([facility]) 291.9 Substance Use Disorders Substance Use Disorders Proble m 11/21/2020 12:00:00 AM EST [facility] ([facility]) I10 Essential Hypertension Benign Essential Hypertension B enign Problem 11/21/2020 12:00:00 AM EST [facility] ([facility]) [id number] Acquired hypothyroidism (disorder) Hypothyroidism Acqu ired Problem 11/21/2020 12:00:00 AM EST [facility] ([facility]) 291.9 Substance Use Disorders Substance Use Disorders Proble m 11/21/2020 12:00:00 AM EST [facility] ([facility]) I10 Essential Hypertension Benign Essential Hypertension B enign Problem 11/21/2020 12:00:00 AM EST [facility] ([facility]) [id number] Acquired hypothyroidism (disorder) Hypothyroidism Acqu ired Problem 11/21/2020 12:00:00 AM EST [facility] ([facility]) 291.9 Substance Use Disorders Substance Use Disorders Proble m 11/21/2020 12:00:00 AM EST [facility] ([facility]) I10 Essential Hypertension Benign Essential Hypertension B enign Problem 11/21/2020 12:00:00 AM EST [facility] ([facility]) Surgeries/Procedures Procedure Description Date Indications Data Source(s) CV STRS TST XERS&/OR RX CONT ECG PHYS SI&R 06/27/2021 12:00:00 AM EDT [facility] (Bj Persaud MD) ECHO TTHRC R-T 2D W/WOM-MODE COMPL SPEC&COLR DOP 06/27 12:00:00 AM EDT [facility] ([facility] Persaud MD) OFFICE OUTPATIENT NEW 45 MINUTES 06/27/2021 12:00:00 A M EDT [facility] (Bj Persaud MD) ELECTROCARDIOGRAM, COMPLETE (EKG) ELECTROCARDIOGRAM, COMPLET E (EKG) 06/08/2021 12:00:00 AM EDT [facility] ([facility]) OFFICE OUTPATIENT NEW 45 MINUTES 04/26/2021 12:00:00 A M EDT [facility] ([facility]) Screening papanicolaou smear; obtaining, preparing and conveyance of cervical or vaginal smear to laboratory PAP SMEAR COLLECTION 12/19/2020 12:00:[address] [facility] ([facility]) Screening papanicolaou smear; obtaining, preparing and conveyance of cervical or vaginal smear to laboratory PAP SMEAR COLLECTION 12/19/2020 12:00:[address] [facility] ([facility]) Results ID Date Data Source [id number] 06/09/2021 11:06:00 AM [facility] Name Value Range Interpretation Code Description Data Emely rce(s) Supporting Document(s) Triiodothyronine (T3) Free [Mass/volume] in Serum or Plasma 2.8 pg/ mL 2.0-4.4 [facility] ID Date Data Source [id number] 06/08/2021 10:27:00 AM [facility] Name Value Range Interpretation Code Description Data Emely rce(s) Supporting Document(s) Thyroxine (T4) free index in Serum or Plasma by calculation 1.36 NG/DL 0.93 - 1.70 [facility] ID Date Data Source [id number] 06/08/2021 10:27:00 AM [facility] Name Value Range Interpretation Code Description Data Emely rce(s) Supporting Document(s) Thyrotropin [Units/volume] in Serum or Plasma by Detec tion limit <= 0.05 mIU/L 0.96 uIU/mL 0.47 - 5.01 [facility] ID Date Data Source [id number] 06/08/2021 10:18:00 AM [facility] Value Range Interpretation Code Description Data Emely rce(s) Supporting Document(s) COMPREHENSIVE METABOLIC PANEL [facility] COMPREHENSIVE METABOLIC PANEL Sodium [Moles/volume] in Serum or Plasma 139 mEq/L 134 - 153 [facility] Potassium [Moles/volume] in Serum or Plasma 4.7 mEq/L 3.6 - 5.0 [facility] Chloride [Moles/volume] in Serum or Plasma 102 mEq/L 98 - 107 [facility] Carbon dioxide, total [Moles/volume] in Serum or Plasma 28 MEQ/L 22 - 30 [facility] Glucose [Mass/volume] in Serum or Plasma 75 MG/DL 70 - 99 [facility] BUN 6 MG/DL 7 - 21 L [facility] Creatinine [Mass/volume] in Serum or Plasma 0.7 MG/DL 0.7 - 1.5 [facility] BUN/CREAT 9 8 - 27 [facility] Protein [Mass/volume] in Serum or Plasma 6.5 G/DL 6.3 - 8.2 [facility] Albumin [Mass/volume] in Serum or Plasma 4.4 G/DL 3.9 - 5.0 [facility] Globulin [Mass/volume] in Serum by calculation 2.1 GM/DL 2.4 - 3.2 L [facility] A/G RATIO 2.1 0.8 - 2.0 H [facility] Calcium [Mass/volume] in Serum or Plasma 9.5 MG/DL 8.4 - 10.2 [facility] Bilirubin.total [Mass/volume] in Serum or Plasma <0.7 MG/DL 0.2 - 1.3 [facility] Alkaline phosphatase [Enzymatic activity/volume] in Serum or Plasma 71 U/L 38 - 126 [facility] Aspartate aminotransferase [Enzymatic activity/volume] in Serum or Plasma 26 U/L 5 - 40 [facility] Alanine aminotransferase [Enzymatic activity/volume] in Seru m or Plasma 20 U/L 7 - 56 [facility] Anion gap 3 in Serum or Plasma 9.0 mmol/L 8.0 - 16.0 [facility] AGE 40 yrs [facility] al NON-AA GFR >60 mL/min [facility] ital AFR AMER GFR >60 mL/min [facility] Ho spital Male GFR In terprentation 20-49 yrs >60 mL/min Normal 50-59 yrs >56 mL/min Normal 60-69 yrs >49 mL/min Normal 70-79yrs >42 mL/min Normal 80 and above >35 mL/min Normal Female GFR Interpretation 20-39 yrs >60 mL/min Normal 40-49 yrs >58 mL/min Normal 50-59 yrs >51 mL/min Normal 60-69 yrs >45 mL/min Normal 70-79 yrs >39 mL/min Normal 80 and above >32 mL/min Normal ID Date Data Source [id number] 06/08/2021 10:12:00 AM EDT [facility] Name Value Range Interpretation Code Description Data Emely rce(s) Supporting Document(s) Fibrin D-dimer FEU [Mass/volume] in Platelet poor plasma <0. 27 ug/mL 0.27 - 0.50 [facility] ID Date Data Source [id number] 06/08/2021 10:10:00 AM EDT [facility] Name Value Range Interpretation Code Description Data Emely rce(s) Supporting Document(s) Magnesium [Mass/volume] in Serum or Plasma 2.0 MG/DL 1.7 - 2.2 [facility] ID Date Data Source [id number] 06/08/2021 09:28:00 AM EDT [facility] Name Value Range Interpretation Code Description Data Emely rce(s) Supporting Document(s) CBC NO DIFF [facility] COMPLETE BLOOD COUNT Leukocytes [#/volume] in Blood by Automated count 8.7 10^3/uL 4.2 - 1 1.0 [facility] Erythrocytes [#/volume] in Blood by Automated count 3.95 10^6/uL 4. 20 - 5.40 L [facility] Hemoglobin [Mass/volume] in Blood 13.1 g/dL 12.0 - 16.0 [facility] Hematocrit [Volume Fraction] of Blood by Automated count 39.3 % 3 7.0 - 47.0 [facility] Erythrocyte mean corpuscular volume [Entitic volume] by Auto mated count 99.5 fL 81.0 - 101 [facility] Erythrocyte mean corpuscular hemoglobin [Entitic mass] by Automated count 33.2 pg 27.0 - 34.0 [facility] Erythrocyte mean corpuscular hemoglobin concentration [Mass/volume] by Automated count 33.3 g/dL 31.0 - 36.0 [facility] Erythrocyte distribution width [Ratio] by Automated count 12.1 % 11.5 - 14.5 [facility] Platelets [#/volume] in Blood by Automated count 266 10^3/uL 150 - 45 0 [facility] Platelet mean volume [Entitic volume] in Blood by Automated count 10.0 fL 7.4 - 10.4 [facility] ID Date Data Source [id number] 05/03/2021 09:30:00 AM EDT [facility] ([facility]) Name Value Range Interpretation Code Description Data Emely rce(s) Supporting Document(s) Glucose [Moles/volume] in Serum or Plasma --[address] 50 g lactose PO 70 mg/dL Normal (applies to non-numeric results) [facility] 120 PR GLU 2HR LACT from 0812:[id number] R. LTT 120 PR GLU 2HR LACT from 0812:[id number]. ID Date Data Source [id number] 05/03/2021 09:02:00 AM EDT [facility] ([facility]) Name Value Range Interpretation Code Description Data Emely rce(s) Supporting Document(s) Lactose [Moles/volume] in Serum or Plasma --1.5 hours post dose lactose PO 58 mg/dL Normal (applies to non-numeric results) [facility] ([facility]) LTT 90 MIN GLU 1.5 LACT from 0812:[id number] R. LTT 90 MIN GLU 1.5 LACT from 0812:[id number]. ID Date Data Source [id number] 05/03/2021 08:31:00 AM EDT [facility] ([facility]) Name Value Range Interpretation Code Description Data Emely rce(s) Supporting Document(s) Lactose [Mass/volume] in Serum or Plasma --1 hour post 50 g lactose PO 62 mg/dL Normal (applies to non-numeric results) [facility]) LTT 60 MIN GLU 1HR LACT from 0812:[id number] R. LTT 60 MIN GLU 1HR LACT from 0812:[id number]. ID Date Data Source [id number] 05/03/2021 08:00:00 AM EDT [facility]) Name Value Range Interpretation Code Description Data Emely rce(s) Supporting Document(s) Lactose [Mass/volume] in Serum or Plasma --30 minutes post 50 g lactose PO 81 mg/dL Normal (applies to non-numeric results) [facility]) LTT 30 MIN GLU 1/2 LACT from 0812:[id number] R. LTT 30 MIN GLU 1/2 LACT from 0812:[id number]. ID Date Data Source [id number] 05/03/2021 07:45:00 AM EDT [facility]) Name Value Range Interpretation Code Description Data Emely rce(s) Supporting Document(s) Glucose [Mass/volume] in Serum or Plasma --15 minutes post 50 g lactose PO 107 mg/dL Normal (applies to non-numeric results) [facility]) LTT 15 MIN GLU 1/4 LACT from 0812:[id number] R. LTT 15 MIN GLU 1/4 LACT from 0812:[id number]. ID Date Data Source [id number] 05/03/2021 07:27:00 AM EDT [facility]) Name Value Range Interpretation Code Description Data Emely rce(s) Supporting Document(s) Lactose [Mass/volume] in Serum or Plasma --pre fast 78 mg/dL Normal (applies to non-numeric results) [facility]) LTT FASTING FAST LACT from 0812:[id number]. LTT FASTING FAST LACT from 0812:[id number]. ID Date Data Source [id number] 05/03/2021 07:15:00 AM EDT [facility]) Name Value Range Interpretation Code Description Data Emely rce(s) Supporting Document(s) Alt/SGPT 32 U/L 12-78 Normal (applies to non-numeric resul ts) [facility] ([facility]) Ast/Sgot 30 U/L 7-37 Normal (applies to non-numeric resul ts) [facility]) Alkaline Phosphatase 65 U/L 45-117 Normal (applies to non-num iris results) [facility]) Bilirubin,Total 0.5 mg/dL 0.2-1.0 Normal (applies to non-numeric results) [facility]) Bilirubin,Direct 0.2 mg/dL 0.0-0.2 Normal (applies to non-numeric results) [facility] ([facility]) Albumin 3.5 GM/DL 3.2-5.2 Normal (applies to non-numeric resul ts) [facility] ([facility]) Total Protein 6.6 GM/DL 6.4-8.2 Normal (applies to non-numeric re sults) [facility] ([facility]) Albumin/Globulin Ratio 1.1 1.2-2.2 Below low normal [facility] ([facility]) ID Date Data Source [id number] 05/03/2021 07:15:00 AM EDT [facility]) Name Value Range Interpretation Code Description Data Emely rce(s) Supporting Document(s) Fasting Lactose 78 mg/dL Normal (applies to non-numeric results) [facility] ([facility]) 1/4 HR Lactose 107 mg/dL Normal (applies to non-numeric r esults) [facility]) 1/2 HR Lactose 81 mg/dL Normal (applies to non-numeric r esults) [facility] ([facility]) 1 HR Lactose 62 mg/dL Normal (applies to non-numeric res ults) [facility]) 1.5 HR Lactose 58 mg/dL Normal (applies to non-numeric r esults) [facility] ([facility]) 2 HR Lactose 70 mg/dL Normal (applies to non-numeric res ults) [facility]) ID Date Data Source [id number] 04/27/2021 01:53:00 PM EDT [facility]) Name Value Range Interpretation Code Description Data Emely rce(s) Supporting Document(s) Nap1 027 For Cdiff PCR Laboratory test result No rmal (applies to non-numeric results) [facility] ([facility]) Clostridium Difficile PCR Laboratory test result Normal (applies to non- numeric results) [facility]) Clostridium difficile testing will only be performed on unformed diarrhea [...] Please contact Infectious Disease Specialist with questions. ID Date Data Source [id number] 04/27/2021 01:53:00 PM EDT [facility] ([facility]) Name Value Range Interpretation Code Description Data Emely rce(s) Supporting Document(s) Fats Total Laboratory test result Normal (applies to non-n umeric results) [facility]) <content>Normal (<100 Droplets/HPF)</con tent>
<content></content> Fats Neutral Laboratory test result Normal (applies to non -numeric results) [facility] ([facility]) <content>Normal (<60 Droplets/HPF)</cont ent>
<content></content> ID Date Data Source [id number] 04/27/2021 01:53:00 PM EDT [facility] ([facility]) Name Value Range Interpretation Code Description Data Emely rce(s) Supporting Document(s) Calprotectin [Mass/mass] in Stool 32 ug/g 0-120 Normal (applies to non-numeric results) [facility] ([facility]) <content>Concentration Interpretatio n Follow-Up</content>
<content><16 - 50 ug/g Normal None</content>
<content>>50 -120 ug/g Borderline Re-evaluate in 4-6 weeks</content>
<content>>120 ug/g Abnormal Repeat as clinically</content>
<content>indicated</content>
<content>Performed at: RN - [facility]</content>
<content>[address], [place] [id number]</content>
<content>Bmx Rider: Michelle Gaitan MD, Phone: [phone]</content>
<content>Performed at: BN - [facility]</content>
<content>[address] [place] [id number]</content>
<content>Bmx Rider: Elena Paulino MD, Phone: [phone]</content>
<content></content> Elastase.pancreatic [Mass/mass] in Stool 482 Normal (applies to non-numeric results) [facility], ) <content>Result Units: ug Elast./g</cont ent>
<content>Severe Pancreatic Insufficiency: <100</content>
<content>Moderate Pancreatic Insufficiency: 100 - 200</content>
<content>Normal: >200</content>
<content></content> ID Date Data Source [id number] 04/27/2021 11:34:00 AM EDT [facility] ([facility]) Name Value Range Interpretation Code Description Data Emely rce(s) Supporting Document(s) White Blood Count 10.7 10 4.0-10.0 Above high normal [facility] ([facility]) Hemoglobin 14.1 g/dL 12.0-15.5 Normal (applies to non-numeric resul ts) [facility] ([facility]) Red Blood Count 4.24 10 4.00-5.40 Normal (applies to non-numeric results) [facility] ([facility]) Mean Corpuscular Volume 102.8 fl 80.0-96.0 Above high normal [facility] ([facility]) Hematocrit 43.6 % 36.0-47.0 Normal (applies to non-numeric resul ts) [facility] ([facility]) Red Cell Distribution Width 12.7 % 11.5-14.5 Norm al (applies to non-numeric results) [facility] ([facility]) Mean Corpuscular HGB Conc 32.3 g/dL 32.0-36.5 Normal (applies to non-numeric results) [facility]) Mean Corpuscular Hemoglobin 33.3 pg 27.0-33.0 Above high normal [facility] ([facility]) Platelet Count, Automated 251 10 150-450 Normal (applies to non-numeric results) [facility] ([facility]) Neutrophils % 59.2 % 36.0-66.0 Normal (applies to non-numeric re sults) [facility] ([facility]) Thayer % 9.5 % 2.0-8.0 Above high normal [facility] Lymph % 27.6 % 24.0-44.0 Normal (applies to non-numeric resul ts) [facility] ([facility]) Baso % 1.0 % 0.0-1.0 Normal (applies to non-numeric resul ts) [facility] ([facility]) Eos % 2.0 % 0.0-3.0 Normal (applies to non-numeric resul ts) [facility]) Nucleated Red Blood Cell % 0.0 % 0-0 Normal (applies to n on-numeric results) [facility] ([facility]) Immature Granulocyte % 0.7 % 0-3.0 Normal (applies to non-n umeric results) [facility] ([facility]) Neutrophils # 6.4 10 1.5-8.5 Normal (applies to non-numeric re sults) [facility] ([facility]) Lymph # 3.0 10 1.5-5.0 Normal (applies to non-numeric resul ts) [facility] ([facility]) Eos # 0.2 10 0.0-0.5 Normal (applies to non-numeric resul ts) [facility] ([facility]) Baso # 0.1 10 0.0-0.2 Normal (applies to non-numeric resul ts) [facility] ([facility]) Thayer # 1.0 10 0.0-0.8 Above high normal [facility] ([facility]) ID Date Data Source [id number] 04/27/2021 11:34:00 AM EDT [facility] ([facility]) Name Value Range Interpretation Code Description Data Emely rce(s) Supporting Document(s) Tissue transglutaminase IgA Ab [Units/volume] in Serum Labor atory test result 0-3 Normal (applies to non-numeric results) [facility]) Negative 0 - 3 Weak Positive 4 - 10 Positive >10 . Tissue Transglutaminase (tTG) has been identified as the endomysial antigen. Studies have demonstr- ated that endomysial IgA antibodies have over 99% specificity for gluten sensitive enteropathy. Performed at: [facility] [place] [facility] [id number] Bmx Rider: Michelle Gaitan MD, Phone: [phone] Performed at: [facility] [id number] Bmx Rider: Elena Paulino MD, Phone: [phone] ID Date Data Source [id number] 04/27/2021 11:34:00 AM EDT [facility] ([facility]) Name Value Range Interpretation Code Description Data Emely rce(s) Supporting Document(s) IgA Serum (part of Subclasses) 267 mg/dL 87-352 N ormal (applies to non-numeric results) [facility] ([facility]) Igasub2 210.2 mg/dL 73.2-301.2 Normal (applies to non-numeric resu lts) [facility] ([facility]) Igasub3 77.8 mg/dL 13.4-97.9 Normal (applies to non-numeric resul ts) [facility] ([facility]) ID Date Data Source [id number] 04/27/2021 11:34:00 AM EDT [facility] ([facility]) Name Value Range Interpretation Code Description Data Emely rce(s) Supporting Document(s) Calprotectin [Mass/mass] in Stool Laboratory test result [facility] ([facility]) Lactose Tolerance Test Laboratory test result [facility] ([facility]) ID Date Data Source [id number] 04/27/2021 11:34:00 AM EDT [facility] ([facility]) Name Value Range Interpretation Code Description Data Emely rce(s) Supporting Document(s) Fat Fecal Qualitative Laboratory test result [facility] ([facility]) Elastase.pancreatic [Mass/mass] in Stool Laboratory test result [facility] ([facility]) ID Date Data Source [id number] 04/27/2021 11:33:00 AM EDT [facility] ([facility], ) Name Value Range Interpretation Code Description Data Emely rce(s) Supporting Document(s) Ast/Sgot 37 U/L 7-37 Normal (applies to non-numeric resul ts) [facility] ([facility], ) Alkaline Phosphatase 88 U/L 45-117 Normal (applies to non-num iris results) [facility] ([facility], ) Alt/SGPT 43 U/L 12-78 Normal (applies to non-numeric resul ts) [facility] ([facility]) Bilirubin,Direct 0.2 mg/dL 0.0-0.2 Normal (applies to non-numeric results) [facility]) Bilirubin,Total 0.5 mg/dL 0.2-1.0 Normal (applies to non-numeric results) [facility]) Albumin 4.2 GM/DL 3.2-5.2 Normal (applies to non-numeric resul ts) [facility] ([facility]) Total Protein 7.6 GM/DL 6.4-8.2 Normal (applies to non-numeric re sults) [facility] ([facility]) Albumin/Globulin Ratio 1.2 1.2-2.2 Normal (applies to non-n umeric results) [facility]) ID Date Data Source [id number] 12/19/2020 09:36:00 AM [facility]OMA[facility] AREVALO ([facility]) Name Value Range Interpretation Code Description Data [facility] Supporting Document(s) Note: PAPSMR Note: MICKEY ([facility]) Note: The Pap smear is a screening test designed to aid in the detection ofpremalignant and malignant conditions of the uterine cervix. It is not adiagnostic procedure and should not be used as the sole means of detectingcervical cancer. Both false-positive and false-negative reports do occur. Microscopic observation [Identifier] in Unspecified specimen by Other stain . . MICKEY ([facility]) Staff Sonographer who read Cyto stain of Cervical or vaginal smear or scraping See Note Performed by: MICKEY ([facility]) Note: Maite Severino, Typo Machine Operator ([facility]an [facility]) Pathology report final diagnosis Narrative See Note DIAGNOSIS: MICKEY ([facility]) Note: NEGATIVE FOR INTRAEPITHELIAL LESIO N OR MALIGNANCY.REACTIVE CELLULAR CHANGES AND/OR REPAIR ARE PRESENT.SHIFT IN LEONA SUGGESTIVE OF BACTERIAL VAGINOSIS.SPECIMEN REPROCESSED FOR INTERPRETATION USING GLACIAL ACETIC ACID(GAA). Pathologist who read Cyto stain of Cervical or vaginal smear or scraping See Note Electronically signed by: MICKEY ([facility]) Note: Karthik Wolff MD, Patholog ist Statement of adequacy [Interpretation] o f Cervical or vaginal smear or scraping by Cyto stain See Note Specimen adequacy: MICKEY ([facility]) Note: Satisfactory for evaluation. Endo cervical and/or squamous metaplasticcells (endocervical component) are present. Diagnosis ICD code See Note Clinician provide d ICD10: MICKEY ([facility]) Note: Z12.4 HPV Aptima Negative HPV Aptima MICKEY ([facility]) Note: This nucleic acid amplification te st detects fourteen high-riskHPV types (16,18,31,33,35,39,45,51,52,56,58,59,66,68) withoutdifferentiation. Cytology report of Cervical or vaginal smear or scrapi ng Cyto stain.thin prep TNP Test Methodology: MICKEY ([facility]) Note: The Thin Prep(R) Aix Architect was unable to read this specimen. Thereforea manual review was performed. ID Date Data Source [id number] 12/19/2020 09:36:00 AM EDT MICKEY ([facility]) Name Value Range Interpretation Code Description Data Emely rce(s) Supporting Document(s) Age Gdln ACOG Testing 30-65 Age Gdln ACOG Testing [facility]) ID Date Data Source [id number] 12/22/2020 10:06:00 AM EDT [facility] Name Value Range Interpretation Code Description Data Emely rce(s) Supporting Document(s) IGP,Aptima HPV,CtNg Age Gdln L [facility] TESTS RESULT FLAG UNI TS REF RANGE LAB Clinician Provided Cytology Information Source.............Cervix;Vagina LMP / Prev Treat...None Dates / Results....4 YRS AGOWNL Other..............IUD No. of containers..01 ThinPrep VialAge Octavioo ACOG Nieves... 30 FLAG LEGEND: L-Low Normal,H-High Normal,LL-Alert Low,HH-Alert High <-Panic Low,>-Panic High,A-Abnormal,AA-Critical Abnormal Performed at:[address] [id number] Karthik Wolff MD, ID Date Data Source [id number] 12/22/2020 10:06:00 AM EDT [facility] Name Value Range Interpretation Code Description Data Emely rce(s) Supporting Document(s) IGP, Aptima HPV, rfx 16/18,45 [facility] TESTS RESULT FLAG UNI TS REF RANGE LAB DIAGNOSIS: 01 NEGATIVE FOR INTRAEPITHELIAL LESION OR MALIGNANCY. REACTIVE CELLULAR CHANGES AND/OR REPAIR ARE PRESENT. SHIFT IN LEONA SUGGESTIVE OF BACTERIAL VAGINOSIS. SPECIMEN REPROCESSED FOR INTERPRETATION USING GLACIAL ACETIC ACID (GAA).Specimen adequacy: 01 Satisfactory for evaluation. Endocervical and/or squamous metaplastic cells (endocervical component) are present.Clinician ICD10: 01 Z12.4Performed by: Maite Severino, Typo Machine Operator (ASCP)Electronic signed by Karthik Wolff MD, Pathologist. 01Note: Note 01 The Pap smear is a screening test designed to aid in the detection of premalignant and malignant conditions of the uterine cervix. It is not a diagnostic procedure and should not be used as the sole means of detecting cervical cancer. Both false-positive and false-negative reports do occur. Test Methodology: Note 01 The [employer] Prep(R) Aix Architect was unable to read this specimen. Therefore a manual review was performed. FLAG LEGEND: L-Low Normal,H-High Normal,LL-Alert Low,HH-Alert High <-Panic Low,>-Panic High,A-Abnormal,AA-Critical Abnormal Performed at:[address] [id number] Karthik Wolff MD, NSF Aptima Negative (Negative) 02NegativeThis nucleic acid amplification test detects fourteen high-riskHPV types (16,18,31,33,35,3 9,45,51,52,56,58,59,66,68) withoutdifferentiation. ID Date Data Source [id number] 12/22/2020 08:02:00 AM EDT [facility] Name Value Range Interpretation Code Description Data Emely rce(s) Supporting Document(s) Transferrin.carbohydrate deficient/Transferrin.total in Seru m or Plasma 0.5 % 0.0-1.3 [facility] Normal <1.4 Inconclusive 1.4 - 1.6 Elevated >1.6 Clinical use only. Not specific for medico-legal purposes. This test is not suitable for the evaluation of patients suspected of having congenital glycosylation disorders. ID Date Data Source [id number] 12/20/2020 07:05:00 AM EDT [facility] Name Value Range Interpretation Code Description Data Emely rce(s) Supporting Document(s) Triiodothyronine (T3) Free [Mass/volume] in Serum or Plasma 2.6 pg/ mL 2.0-4.4 [facility] ID Date Data Source [id number] 12/19/2020 09:05:00 AM EDT [facility] Value Range Interpretation Code Description Data Emely rce(s) Supporting Document(s) Thyroxine (T4) free index in Serum or Plasma by calculation 1.94 NG/DL 0.93 - 1.70 H [facility] ID Date Data Source [id number] 12/19/2020 09:02:00 AM EDT [facility] Name Value Range Interpretation Code Description Data Emely rce(s) Supporting Document(s) Cobalamin (Vitamin B12) [Mass/volume] in Serum or Plasma 354 PG/ML 232 - 1245 [facility] ID Date Data Source [id number] 12/19/2020 09:02:00 AM T [facility] Value Range Interpretation Code Description Data Emely rce(s) Supporting Document(s) Folate [Mass/volume] in Serum or Plasma 8.4 NG/ML 4.4 - 31.0 [facility] ID Date Data Source [id number] 12/19/2020 09:02:00 AM EDT [facility] Value Range Interpretation Code Description Data Emely rce(s) Supporting Document(s) Calcidiol [Moles/volume] in Serum or Plasma 19 NG/ML [facility] VITAMIN-D(2 5HYDROXY) Deficiency: <=20 ng/ml Insufficiency: 21-29 ng/ml Preferred level: => 30 ng/ml ID Date Data Source [id number] 12/19/2020 09:02:00 AM EDT [facility] Name Value Range Interpretation Code Description Data Emely rce(s) Supporting Document(s) Thyrotropin [Units/volume] in Serum or Plasma by Detec tion limit <= 0.05 mIU/L 1.91 uIU/mL 0.47 - 5.01 [facility] ID Date Data Source [id number] 12/19/2020 08:34:00 AM EDT [facility] Name Value Range Interpretation Code Description Data Emely rce(s) Supporting Document(s) Gamma glutamyl transferase [Enzymatic activity/volume] in Serum or Plasma 109 U/L 8 - 78 H [facility] ID Date Data Source [id number] 12/19/2020 08:34:00 AM EDT [facility] Name Value Range Interpretation Code Description Data Emely e(s) Supporting Document(s) COMPREHENSIVE METABOLIC PANEL [facility] COMPREHENSIVE METABOLIC PANEL Sodium [Moles/volume] in Serum or Plasma 141 mEq/L 134 - 153 [facility] Potassium [Moles/volume] in Serum or Plasma 4.1 mEq/L 3.6 - 5.0 [facility] Chloride [Moles/volume] in Serum or Plasma 103 mEq/L 98 - 107 [facility] Carbon dioxide, total [Moles/volume] in Serum or Plasma 28 MEQ/L 22 - 30 [facility] Glucose [Mass/volume] in Serum or Plasma 82 MG/DL 70 - 99 [facility] BUN 6 MG/DL 7 - 21 L [facility] Creatinine [Mass/volume] in Serum or Plasma 0.8 MG/DL 0.7 - 1.5 [facility] BUN/CREAT 8 8 - 27 [facility] Protein [Mass/volume] in Serum or Plasma 7.0 G/DL 6.3 - 8.2 [facility] Albumin [Mass/volume] in Serum or Plasma 4.7 G/DL 3.9 - 5.0 [facility] Globulin [Mass/volume] in Serum by calculation 2.3 GM/DL 2.4 - 3.2 L [facility] A/G RATIO 2.0 0.8 - 2.0 [facility] Calcium [Mass/volume] in Serum or Plasma 9.3 MG/DL 8.4 - 10.2 [facility] Bilirubin.total [Mass/volume] in Serum or Plasma <0.7 MG/DL 0.2 - 1.3 [facility] Alkaline phosphatase [Enzymatic activity/volume] in Serum or Plasma 73 U/L 38 - 126 [facility] Aspartate aminotransferase [Enzymatic activity/volume] in Serum or Plasma 38 U/L 5 - 40 [facility] Alanine aminotransferase [Enzymatic activity/volume] in Seru m or Plasma 29 U/L 7 - 56 [facility] Anion gap 3 in Serum or Plasma 10.0 mmol/L 8.0 - 16.0 [facility] AGE 40 yrs [facility] NON-AA GFR >60 mL/min [facility] ital AFR AMER GFR >60 mL/min [facility] spital Male GFR In terprentation 20-49 yrs >60 mL/min Normal 50-59 yrs >56 mL/min Normal 60-69 yrs >49 mL/min Normal 70-79yrs >42 mL/min Normal 80 and above >35 mL/min Normal Female GFR Interpretation 20-39 yrs >60 mL/min Normal 40-49 yrs >58 mL/min Normal 50-59 yrs >51 mL/min Normal 60-69 yrs >45 mL/min Normal 70-79 yrs >39 mL/min Normal 80 and above >32 mL/min Normal ID Date Data Source [id number] 12/19/2020 08:33:00 AM EDT [facility] Name Value Range Interpretation Code Description Data Emely rce(s) Supporting Document(s) CVE PANEL [facility] LIPID PANEL Cholesterol [Mass/volume] in Serum or Plasma 176 MG/DL 131 - 200 [facility] Deprecated Triglyceride [Mass/volume] in Serum or Plasma 159 MG/DL 3 5 - 160 [facility] HDL 74 MG/DL 29 - 86 [facility] Cholesterol in LDL [Mass/volume] in Serum or Plasma by Direc t assay 95 mg/dL 65 - 175 [facility] Cholesterol.total/Cholesterol in HDL [Mass Ratio] in Serum o r Plasma 2.4 3.2 - 4.4 L [facility] LDL/HDL 1.28 1.47 - 3.22 L [facility] ital CVE RISK CHOL/HDL LDL/HDLMEN: 1/2 AVERAGE 3.43 1.00 AVERAGE 4.97 3.55 2X AVERAGE 9.55 6.25 3X AVERAGE 23.99 7.99WOMEN: 1/2 AVERAGE 3.27 1.47 AVERAGE 4.44 3.22 2X AVERAGE 7.05 5.03 3X AVERAGE 11.04 6.14 ID Date Data Source [id number] 12/19/2020 08:33:00 AM EDT [facility] Name Value Range Interpretation Code Description Data Emely rce(s) Supporting Document(s) Urate [Mass/volume] in Serum or Plasma 5.2 MG/DL 2.5 - 8.5 [facility] ID Date Data Source [id number] 12/19/2020 07:32:00 AM EDT [facility] Name Value Range Interpretation Code Description Data Emely rce(s) Supporting Document(s) CBC NO DIFF [facility] ital COMPLETE BLOOD COUNT Leukocytes [#/volume] in Blood by Automated count 5.5 10^3/uL 4.2 - 1 1.0 [facility] Erythrocytes [#/volume] in Blood by Automated count 4.00 10^6/uL 4. 20 - 5.40 L [facility] Hemoglobin [Mass/volume] in Blood 13.7 g/dL 12.0 - 16.0 [facility] Hematocrit [Volume Fraction] of Blood by Automated count 39.3 % 3 7.0 - 47.0 [facility] Erythrocyte mean corpuscular volume [Entitic volume] by Auto mated count 98.3 fL 81.0 - 101 [facility] Erythrocyte mean corpuscular hemoglobin [Entitic mass] by Automated count 34.3 pg 27.0 - 34.0 H [facility] Erythrocyte mean corpuscular hemoglobin concentration [Mass/volume] by Automated count 34.9 g/dL 31.0 - 36.0 [facility] Erythrocyte distribution width [Ratio] by Automated count 12.2 % 11.5 - 14.5 [facility] Platelets [#/volume] in Blood by Automated count 280 10^3/uL 150 - 45 0 [facility] Platelet mean volume [Entitic volume] in Blood by Automated count 9.9 fL 7.4 - 10.4 [facility] Procedure Social History No Information Vital Signs ID Date Data Source UNK Name Value Range Interpretation Code Description Data Source(s) Body height 63.25 [in_i] 63.25 [in_i] [facility] (Abhishek Persaud MD) 5'3.25" Body weight 150.12 [lb_av] 150.12 [lb_av] MEDEN T (Bj Persaud MD) Body mass index (BMI) [Ratio] 26.4 kg/m2 26.4 k g/m2 [facility] (Bj Persaud MD) Body temperature 97.9 [degF] 97.9 [degF] [facility] (Bj Persaud MD) Systolic blood pressure 124 mm[Hg] 124 mm[Hg] M EDENT (Bj Persaud MD) Diastolic blood pressure 86 mm[Hg] 86 mm[Hg] [facility] Heart rate 82 /min 82 /min [facility] (Bj Persaud [facility]) Oxygen saturation in Arterial blood by Pulse oximetry 98 % 98 % [facility] (Bj Persaud [facility]) Respiratory rate 18 /min 18 /min [facility] ( Bj Persaud MD) Body weight 153 [lb_av] 153 [lb_av] ETHEL ([facility]) Body mass index (BMI) [Ratio] 26.9 kg/m2 26.9 k g/m2 ETHE[facility] ([facility]) Body surface area Derived from formula 1.73 m2 1.73 m2 ETHEL ([facility]) Oxygen saturation in Arterial blood by Pulse oximetry 96 % 96 % ETHE[facility] ([facility]) Inhaled oxygen flow rate 0 L/min 0 L/min [facility] ([facility]) Inhaled oxygen concentration 21 % 21 % [facility] ([facility]) Systolic blood pressure 116 mm[Hg] 116 mm[Hg] [facility] Diastolic blood pressure 72 mm[Hg] 72 mm[Hg] E[facility] ([facility]) Heart rate 76 /min 76 /min [facility] ([facility]) Respiratory rate 24 /min 24 /min [facility] ([facility]) Body temperature 97.8 [degF] 97.8 [degF] [facility] ([facility]) Body height 63.25 [in_i] 63.25 [in_i] ETHEL ([facility]) Body temperature 95.6 [degF] 95.6 [degF] [facility] ([facility]) Inhaled oxygen flow rate 0 L/min 0 L/min [facility] ([facility]) Body height 63.25 [in_i] 63.25 [in_i] E[facility] ([facility]) Body weight 153 [lb_av] 153 [lb_av] ETHE[facility] ([facility]) Body mass index (BMI) [Ratio] 26.9 kg/m2 26.9 k g/m2 [facility] ([facility]) Body surface area Derived from formula 1.73 m2 1.73 m2 [facility] ([facility]) Systolic blood pressure 114 mm[Hg] 114 mm[Hg] [facility] Diastolic blood pressure 86 mm[Hg] 86 mm[Hg] ETHEL ([facility]) Heart rate 78 /min 78 /min E[facility] ([facility]) Respiratory rate 18 /min 18 /min [facility] ([facility]) Oxygen saturation in Arterial blood by Pulse oximetry 98 % 98 % [facility] ([facility]) Inhaled oxygen concentration 21 % 21 % [facility] ([facility]) Systolic blood pressure 128 mm[Hg] 128 mm[Hg] M EDENT ([facility], ) Diastolic blood pressure 74 mm[Hg] 74 mm[Hg] MEDENT ([facility], ) Body weight 150.00 [lb_av] 150.00 [lb_av] MEDEN T ([facility], ) Body height 64.75 [in_i] 64.75 [in_i] [facility] ([facility], ) 5'4.75" [place] body weight 120 [lb_av] 120 [lb_av] MEDEN T [facility] Body mass index (BMI) [Ratio] 25.2 kg/m2 25.2 k g/m2 [facility] ([facility]) Body surface area Derived from formula 1.75 m2 1.75 m2 [facility] ([facility]) Body weight 68.040 kg 68.040 kg [facility] ([facility]) Respiratory rate 18 /min 18 /min E[facility] ([facility]) Diastolic blood pressure 96 mm[Hg] 96 mm[Hg] MICKEY ([facility]) Heart rate 64 /min 64 /min ETHEL ([facility]) Body temperature 96.8 [degF] 96.8 [degF] [facility] ([facility]) Body height 63.25 [in_i] 63.25 [in_i] ETHEL ([facility]) Body weight 156 [lb_av] 156 [lb_av] ETHEL ([facility]) Systolic blood pressure 158 mm[Hg] 158 mm[Hg] [facility]) Body mass index (BMI) [Ratio] 27.4 kg/m2 27.4 k g/m2 [facility] ([facility]) Body surface area Derived from formula 1.75 m2 1.75 m2 [facility] ([facility]) Oxygen saturation in Arterial blood by Pulse oximetry 97 % 97 % [facility] ([facility]) Oxygen saturation in Arterial blood by Pulse oximetry 98 % 98 % [facility] ([facility]) Diastolic blood pressure 80 mm[Hg] 80 mm[Hg] E[facility] ([facility]) Heart rate 68 /min 68 /min [facility] ([facility]) Respiratory rate 20 /min 20 /min [facility] ([facility]) Body temperature 98 [degF] 98 [degF] [facility] ([facility]) Body height 63.25 [in_i] 63.25 [in_i] MICKEY ([facility]) Body weight 154.5 [lb_av] 154.5 [lb_av] [facility] ([facility]) Body mass index (BMI) [Ratio] 27.2 kg/m2 27.2 k g/m2 [facility] ([facility]) Systolic blood pressure 132 mm[Hg] 132 mm[Hg] G [facility] ([facility]) Body surface area Derived from formula 1.74 m2 1.74 m2 [facility] ([facility]) Systolic blood pressure 126 mm[Hg] 126 mm[Hg] G [facility] ([facility]) Diastolic blood pressure 80 mm[Hg] 80 mm[Hg] E[facility] ([facility]) Heart rate 72 /min 72 /min [facility] ([facility]) Respiratory rate 20 /min 20 /min [facility] ([facility]) Body temperature 97.8 [degF] 97.8 [degF] [facility] ([facility]) Body height 63.25 [in_i] 63.25 [in_i] E[facility] ([facility]) Body weight 160 [lb_av] 160 [lb_av] ETHE[facility] ([facility]) Body mass index (BMI) [Ratio] 28.1 kg/m2 28.1 k g/m2 [facility] ([facility]) Oxygen saturation in Arterial blood by Pulse oximetry 97 % 97 % [facility] ([facility]) Body surface area Derived from formula 1.76 m2 1.76 m2 [facility] ([facility]) Patient Treatment Plan of Care Planned Activity Planned Date Details Description Data Source (s) Lisinopril 20 MG Oral Tablet 05/08/2021 12:00:00 AM EDT [facility] ([facility]) Levothyroxine Sodium 0.15 MG Oral Capsule 05/08/2021 12:00:00 AM ED [facility] ([facility]) Lisinopril 20 MG Oral Tablet 02/12/2021 12:00:00 AM EDT [facility] ([facility]) Levothyroxine Sodium 0.15 MG Oral Capsule 02/12/2021 12:00:00 AM ED [facility] ([facility]) Losartan Potassium 50 MG Oral Tablet 01/30/2021 12:00:00 AM EDT [facility] ([facility]) Losartan Potassium 25 MG Oral Tablet 12/19/2020 12:00:00 AM EDT [facility] ([facility]) Lisinopril 20 MG Oral Tablet 11/21/2020 12:00:00 AM EST [facility] ([facility]) Levothyroxine Sodium 0.15 MG Oral Capsule 11/21/2020 12:00:00 AM ES T [facility] ([facility])
--- NOTE | 2021-07-06 13:26 | ROOR ---
Patient Name: Pearl Obrien Procedure Date: 07/06/2021 1:05 PM Date of : 1980 Age: 40 Room: [facility] Gender: Female Note Status: Finalized Procedure: Upper GI endoscopy Indications: Dyspepsia, Dysphagia Providers: Myles Foreman MD Referring MD: GABINO PAPPAS MD, Cristiana CHACKO NP Requesting Provider: Medicines: Propofol per Anesthesia Complications: No immediate complications. Procedure: Pre-Anesthesia Assessment: - Prior to the procedure, a History and Physical was performed, and patient medications and allergies were reviewed. The patient is competent. The risks and benefits of the procedure and the sedation options and risks were discussed with the patient. All questions were answered and informed consent was obtained. Patient identification and proposed procedure were verified by the physician, the nurse and the anesthesiologist in the procedure room. Mental Status Examination: alert and oriented. Airway Examination: normal oropharyngeal airway and neck mobility. Respiratory Examination: clear to auscultation. CV Examination: normal. Prophylactic Antibiotics: The patient does not require prophylactic antibiotics. Prior Anticoagulants: The patient has taken no previous anticoagulant or antiplatelet agents. ASA Grade Assessment: II - A patient with mild systemic disease. After reviewing the risks and benefits, the patient was deemed in satisfactory condition to undergo the procedure. The anesthesia plan was to use monitored anesthesia care (MAC). Immediately prior to administration of medications, the patient was re-assessed for adequacy to receive sedatives. The heart rate, respiratory rate, oxygen saturations, blood pressure, adequacy of pulmonary ventilation, and response to care were monitored throughout the procedure. The physical status of the patient was re-assessed after the procedure. The Endoscope was introduced through the mouth, and advanced to the second part of duodenum. The upper GI endoscopy was accomplished without difficulty. The patient tolerated the procedure well. Findings: The examined esophagus was normal. Biopsies were obtained from the proximal and distal esophagus with cold forceps for histology of suspected eosinophilic esophagitis. The Z-line was regular and was found at the gastroesophageal junction. Scattered moderate inflammation characterized by erythema and granularity was found in the gastric antrum. Biopsies were taken with a cold forceps for Helicobacter pylori testing. The duodenal bulb and second portion of the duodenum were normal. Biopsies for histology were taken with a cold forceps for evaluation of celiac disease. Verification of patient identification for the specimen was done by the physician and nurse using the patient's name, date and medical record number. Estimated blood loss was minimal. Impression: - Normal esophagus. Biopsied. - Z-line regular, at the gastroesophageal junction. - Gastritis. Biopsied. - Normal duodenal bulb and second portion of the duodenum. Biopsied. Recommendation: - Patient has a contact number available for emergencies. The signs and symptoms of potential delayed complications were discussed with the patient. Return to normal activities tomorrow. Written discharge instructions were provided to the patient. - High fiber diet. - Continue present medications. - Follow an antireflux regimen. - Await pathology results. - Return to GI clinic in [facility] (address: [address] [place] [address], [address] [place] [address], [place], [place],[facility]) in 4 -- 6 weeks. Please call GI clinic @ [phone] for apppointment date and time. - Return to primary care physician. Procedure Code(s): --- Professional --- 92582, Esophagogastroduodenoscopy, flexible, transoral; with biopsy, single or multiple Diagnosis Code(s): --- Professional --- K29.70, Gastritis, unspecified, without bleeding R10.13, Epigastric pain R13.10, Dysphagia, unspecified CPT copyright 2019 [employer]. All rights reserved. The codes documented in this report are preliminary and upon passenger brakeman review may be revised to meet current compliance requirements. Myles Foreman MD Myles Foreman MD 07/06/2021 1:25:51 PM Electronically signed by Myles Foreman MD Number of Addenda: 0 Note Initiated On: 07/06/2021 1:05 PM Estimated Blood Loss: Estimated blood loss was minimal.
--- NOTE | 2021-07-06 13:42 | ROOR ---
Patient Name: Pearl Obrien Procedure Date: 07/06/2021 1:06 PM Date of : 1980 Age: 40 Room: [facility] Gender: Female Note Status: Finalized Procedure: Colonoscopy Indications: Chronic diarrhea Providers: Myles Foreman MD Referring MD: GABINO PAPPAS MD, Cristiana CHACKO NP Requesting Provider: Medicines: Monitored Anesthesia Care Complications: No immediate complications. Procedure: Pre-Anesthesia Assessment: - Prior to the procedure, a History and Physical was performed, and patient medications and allergies were reviewed. The patient is competent. The risks and benefits of the procedure and the sedation options and risks were discussed with the patient. All questions were answered and informed consent was obtained. Patient identification and proposed procedure were verified by the physician, the nurse and the anesthesiologist in the procedure room. Mental Status Examination: alert and oriented. Airway Examination: normal oropharyngeal airway and neck mobility. Respiratory Examination: clear to auscultation. CV Examination: normal. Prophylactic Antibiotics: The patient does not require prophylactic antibiotics. Prior Anticoagulants: The patient has taken no previous anticoagulant or antiplatelet agents. ASA Grade Assessment: II - A patient with mild systemic disease. After reviewing the risks and benefits, the patient was deemed in satisfactory condition to undergo the procedure. The anesthesia plan was to use monitored anesthesia care (MAC). Immediately prior to administration of medications, the patient was re-assessed for adequacy to receive sedatives. The heart rate, respiratory rate, oxygen saturations, blood pressure, adequacy of pulmonary ventilation, and response to care were monitored throughout the procedure. The physical status of the patient was re-assessed after the procedure. The Colonoscope was introduced through the anus and advanced to the terminal ileum, with identification of the appendiceal orifice and IC valve. The colonoscopy was performed without difficulty. The patient tolerated the procedure well. The quality of the bowel preparation was good. The terminal ileum, ileocecal valve, appendiceal orifice, and rectum were photographed. Scope insertion time was 2 minutes. Scope withdrawal time was 9 minutes. The total duration of the procedure was 11 minutes. Findings: The perianal and digital rectal examinations were normal. The terminal ileum appeared normal. Normal mucosa was found in the entire colon. Biopsies for histology were taken with a cold forceps from the right colon, left colon and rectosigmoid colon for evaluation of microscopic colitis. Verification of patient identification for the specimen was done by the physician and nurse using the patient's name, date and medical record number. Estimated blood loss was minimal. Non-bleeding external and internal hemorrhoids were found during retroflexion. The hemorrhoids were medium-sized. Impression: - The examined portion of the ileum was normal. - Normal mucosa in the entire examined colon. Biopsied. - Non-bleeding external and internal hemorrhoids. Recommendation: - Patient has a contact number available for emergencies. The signs and symptoms of potential delayed complications were discussed with the patient. Return to normal activities tomorrow. Written discharge instructions were provided to the patient. - High fiber diet. - Continue present medications. - Await pathology results. - Repeat colonoscopy in 10 years for screening purposes. - Return to GI clinic in [facility] (address: [address] [place] [address], [address] [place] [id number]) in 4 -- 6 weeks. Please call GI clinic @ [phone] for apppointment date and time. - Return to primary care physician. Procedure Code(s): --- Professional --- 13284, Colonoscopy, flexible; with biopsy, single or multiple Diagnosis Code(s): --- Professional --- K64.8, Other hemorrhoids K52.9, Noninfective gastroenteritis and colitis, unspecified CPT copyright 2019 [employer]. All rights reserved. The codes documented in this report are preliminary and upon auto mechanic review may be revised to meet current compliance requirements. Myles Foreman MD Myles Foreman MD 07/06/2021 1:42:06 PM Electronically signed by Myles Foreman MD Number of Addenda: 0 Note Initiated On: 07/06/2021 1:06 PM Estimated Blood Loss: Estimated blood loss was minimal.
[2021-07-06 14:00] VITALS: BP 133/78
== END 2021-07-06 14:15 | disposition home or self-care (01) ==
LOC: M OPP 11:22
PROVIDERS: ATTEND Internal Medicine Gastroenterology
DX: K52.9 Noninfective gastroenteritis and colitis, unspecified (principal); K64.8 Other hemorrhoids; K29.70 Gastritis, unspecified, without bleeding; R10.13 Epigastric pain; R13.10 Dysphagia, unspecified; Z79.899 Other long term (current) drug therapy; Z80.0 Family history of malignant neoplasm of digestive organs; Z80.3 Family history of malignant neoplasm of breast; F17.210 Nicotine dependence, cigarettes, uncomplicated
CPT/HCPCS: 43239; 45380; 88305; J3010